=== PATIENT | male | born 1935 | race Caucasian/White ===

== ENCOUNTER 2016-07-14 10:42 | Outpatient (CLI) | END 2016-07-14 10:43 | disposition home or self-care (01) ==

== ENCOUNTER 2016-08-11 11:13 | Outpatient (CLI) | payer MEDICARE, OTHER | END 2016-08-11 11:14 | disposition home or self-care (01) | DX: R94.6 Abnormal results of thyroid function studies (principal); Z79.01 Long term (current) use of anticoagulants; I80.209 Phlebitis and thrombophlebitis of unspecified deep vessels of unspecified lower extremity; I63.9 Cerebral infarction, unspecified ==

== ENCOUNTER 2016-10-07 13:07 | Outpatient (CLI) | payer MEDICARE, OTHER | END 2016-10-07 13:08 | disposition home or self-care (01) | DX: I80.209 Phlebitis and thrombophlebitis of unspecified deep vessels of unspecified lower extremity (principal); Z79.01 Long term (current) use of anticoagulants; I71.2 Thoracic aortic aneurysm, without rupture; I63.9 Cerebral infarction, unspecified ==

== ENCOUNTER 2016-11-09 21:56 | Outpatient (CLI) | payer MEDICARE, OTHER | END 2016-11-09 21:57 | disposition home or self-care (01) | DX: Z79.01 Long term (current) use of anticoagulants (principal); I80.209 Phlebitis and thrombophlebitis of unspecified deep vessels of unspecified lower extremity; I71.2 Thoracic aortic aneurysm, without rupture; I63.9 Cerebral infarction, unspecified; I10 Essential (primary) hypertension; E78.00 Pure hypercholesterolemia, unspecified; M79.1 Myalgia; E11.9 Type 2 diabetes mellitus without complications ==

== ENCOUNTER 2016-12-07 11:03 | Outpatient (CLI) | payer MEDICARE, OTHER | END 2016-12-07 11:04 | disposition home or self-care (01) | LOC: LAB.F 11:03 | PROVIDERS: ATTEND Family Medicine | DX: Z79.01 Long term (current) use of anticoagulants (principal); I63.9 Cerebral infarction, unspecified | CPT/HCPCS: 85610 ==

== ENCOUNTER 2016-12-08 11:08 | Outpatient (CLI) | payer MEDICARE, OTHER | END 2016-12-08 11:09 | disposition home or self-care (01) | LOC: LAB.F 11:08 | PROVIDERS: ATTEND Family Medicine | DX: Z79.01 Long term (current) use of anticoagulants (principal); I63.9 Cerebral infarction, unspecified | CPT/HCPCS: 85610 ==

== ENCOUNTER 2016-12-17 11:31 | Outpatient (CLI) | payer MEDICARE, OTHER | END 2016-12-17 11:32 | disposition home or self-care (01) | LOC: LAB.F 11:31 | PROVIDERS: ATTEND Family Medicine | DX: Z79.01 Long term (current) use of anticoagulants (principal) | CPT/HCPCS: 85610 ==

== ENCOUNTER 2016-12-24 10:40 | Outpatient (CLI) | payer MEDICARE, OTHER | END 2016-12-24 10:41 | disposition home or self-care (01) | LOC: LAB.F 10:40 | PROVIDERS: ATTEND Family Medicine | DX: Z79.01 Long term (current) use of anticoagulants (principal); I63.9 Cerebral infarction, unspecified | CPT/HCPCS: 85610 ==

== ENCOUNTER 2016-12-30 13:05 | Outpatient (CLI) | payer MEDICARE, OTHER | END 2016-12-30 13:06 | disposition home or self-care (01) | LOC: LAB.F 13:05 | PROVIDERS: ATTEND Family Medicine | DX: Z79.01 Long term (current) use of anticoagulants (principal); I63.9 Cerebral infarction, unspecified | CPT/HCPCS: 85610 ==

== ENCOUNTER 2017-02-02 15:16 | Outpatient (CLI) | payer MEDICARE, OTHER | END 2017-02-02 15:17 | LOC: LAB.F 15:16 | PROVIDERS: ATTEND Internal Medicine | DX: Z79.01 Long term (current) use of anticoagulants (principal) | CPT/HCPCS: 85610 ==

== ENCOUNTER 2017-02-22 20:11 | Outpatient (CLI) | payer MEDICARE, OTHER | END 2017-02-22 20:12 | disposition EMS.NT | LOC: EMS 20:11 | PROVIDERS: ATTEND Surgery | DX: H57.8 Other specified disorders of eye and adnexa (principal) ==

== ENCOUNTER 2017-02-28 12:28 | Outpatient (CLI) | payer MEDICARE, OTHER ==
[2017-02-28 19:08] LABS: CALCIUM 9.4 mg/dL (8.5-10.3); CREATININE 1.1 mg/dL (0.6-1.2); POTASSIUM 3.9 mmol/L (3.5-5.0)
[2017-02-28 19:23] LABS: HEMOGLOBIN A1C 0.8 g/dL
== END 2017-02-28 12:29 | disposition home or self-care (01) ==
LOC: LAB.F 12:28
PROVIDERS: ATTEND Internal Medicine
DX: E11.9 Type 2 diabetes mellitus without complications (principal)
CPT/HCPCS: 36415; 80048; 83036; 85610

== ENCOUNTER 2017-03-30 14:12 | Outpatient (CLI) | payer MEDICARE, OTHER | END 2017-03-30 14:13 | disposition home or self-care (01) | LOC: LAB.F 14:12 | PROVIDERS: ATTEND Internal Medicine | DX: Z79.01 Long term (current) use of anticoagulants (principal); E11.9 Type 2 diabetes mellitus without complications ==

== ENCOUNTER → 2017-03-30 | Outpatient (CLI) | payer MEDICARE, OTHER | LOC: LAB.R 08:00 | PROVIDERS: ATTEND Internal Medicine | DX: E11.9 Type 2 diabetes mellitus without complications (principal) | CPT/HCPCS: 82043; 82570 ==

== ENCOUNTER 2017-04-06 14:51 | Outpatient (CLI) | payer MEDICARE, OTHER ==
[2017-04-06 18:01] LABS: BASOPHILS % (AUTO) 0.4 %; EOSINOPHILS # (AUTO) 0.1 10^3/uL (0.0-0.7); EOSINOPHILS % (AUTO) 1.5 %; HCT - HEMATOCRIT 42.1 % (42.0-52.0); HGB - HEMOGLOBIN 14.2 g/dL (14.0-18.0); LYMPHOCYTES # (AUTO) 0.9 10^3/uL (1.5-3.5); LYMPHOCYTES % (AUTO) 12.5 %; MEAN CORPUSCULAR HEMOGLOBIN 30.3 pg (27.0-31.0); MEAN CORPUSCULAR HGB CONC 33.6 g/dL (32.0-36.0); MEAN CORPUSCULAR VOLUME 90.1 fL (80.0-94.0); MONOCYTES # (AUTO) 0.5 10^3/uL (0.0-1.0); MONOCYTES % (AUTO) 7.6 %; NEUTROPHILS # (AUTO) 5.4 10^3/uL (1.5-6.6); NUCLEATED RED BLOOD CELLS AUTO 0.1 /100WBC; RED BLOOD COUNT 4.67 10^6/uL (4.70-6.10); RED CELL DISTRIBUTION WIDTH 13.4 % (12.0-15.0)
[2017-04-06 18:55] LABS: ALBUMIN/GLOBULIN RATIO 1.1 (1.0-2.2); BILIRUBIN,TOTAL 0.9 mg/dL (0.2-1.0); CALCIUM 8.8 mg/dL (8.5-10.3); POTASSIUM 4.6 mmol/L (3.5-5.0); TOTAL PROTEIN 7.5 g/dL (6.7-8.2)
== END 2017-04-06 14:52 | disposition home or self-care (01) ==
LOC: LAB.F 14:51
PROVIDERS: ATTEND Internal Medicine
DX: R53.83 Other fatigue (principal); E11.9 Type 2 diabetes mellitus without complications
CPT/HCPCS: 36415; 80053; 82043; 82570; 85025

== ENCOUNTER 2017-04-07 13:40 | Outpatient (CLI) | payer MEDICARE, OTHER | END 2017-04-07 13:41 | LOC: LAB.R 13:40 | PROVIDERS: ATTEND Internal Medicine | DX: R53.83 Other fatigue (principal); E11.9 Type 2 diabetes mellitus without complications | CPT/HCPCS: 82043; 82570 ==

== ENCOUNTER 2017-05-04 13:11 | Outpatient (CLI) | payer MEDICARE, OTHER | END 2017-05-04 13:12 | disposition home or self-care (01) | LOC: LAB.F 13:11 | PROVIDERS: ATTEND Internal Medicine | DX: Z79.01 Long term (current) use of anticoagulants (principal) | CPT/HCPCS: 85610 ==

== ENCOUNTER 2017-05-05 13:04 | Outpatient (CLI) | payer MEDICARE, OTHER | END 2017-05-05 13:05 | disposition home or self-care (01) | LOC: LAB.F 13:04 | PROVIDERS: ATTEND Internal Medicine | DX: Z79.01 Long term (current) use of anticoagulants (principal) | CPT/HCPCS: 85610 ==

== ENCOUNTER 2017-05-11 14:10 | Outpatient (CLI) | payer MEDICARE, OTHER | END 2017-05-11 14:11 | disposition home or self-care (01) | LOC: LAB.F 14:10 | PROVIDERS: ATTEND Family Medicine | DX: Z79.01 Long term (current) use of anticoagulants (principal) | CPT/HCPCS: 85610 ==

== ENCOUNTER 2017-05-25 12:35 | Outpatient (CLI) | payer MEDICARE, OTHER | END 2017-05-25 12:36 | disposition home or self-care (01) | LOC: LAB.F 12:35 | PROVIDERS: ATTEND Physician Assistant Medical | DX: Z79.01 Long term (current) use of anticoagulants (principal); I48.0 Paroxysmal atrial fibrillation | CPT/HCPCS: 85610 ==

== ENCOUNTER 2017-05-30 15:03 | Outpatient (CLI) | payer MEDICARE, OTHER ==
[2017-05-30 18:44] LABS: ALBUMIN/GLOBULIN RATIO 1.2 (1.0-2.2); BILIRUBIN,TOTAL 0.7 mg/dL (0.2-1.0); CALCIUM 9.2 mg/dL (8.5-10.3); CREATININE 1.1 mg/dL (0.6-1.2); POTASSIUM 3.9 mmol/L (3.5-5.0); TOTAL PROTEIN 7.6 g/dL (6.7-8.2)
[2017-05-30 20:24] LABS: HEMOGLOBIN A1C 0.78 g/dL
== END 2017-05-30 15:04 | disposition home or self-care (01) ==
LOC: LAB.F 15:03
PROVIDERS: ATTEND Physician Assistant Medical
DX: E11.40 Type 2 diabetes mellitus with diabetic neuropathy, unspecified (principal)
CPT/HCPCS: 36415; 80053; 83036

== ENCOUNTER 2017-06-08 11:10 | Outpatient (CLI) | payer MEDICARE, OTHER | END 2017-06-08 11:11 | disposition home or self-care (01) | LOC: LAB.F 11:10 | PROVIDERS: ATTEND Physician Assistant Medical | DX: Z79.01 Long term (current) use of anticoagulants (principal); I48.0 Paroxysmal atrial fibrillation | CPT/HCPCS: 85610 ==

== ENCOUNTER 2017-07-06 14:02 | Outpatient (CLI) | payer MEDICARE, OTHER | END 2017-07-06 14:03 | disposition home or self-care (01) | LOC: LAB.F 14:02 | PROVIDERS: ATTEND Physician Assistant Medical | DX: Z79.01 Long term (current) use of anticoagulants (principal); I48.0 Paroxysmal atrial fibrillation | CPT/HCPCS: 85610 ==

== ENCOUNTER 2017-07-19 13:14 | Outpatient (CLI) | payer MEDICARE, OTHER | END 2017-07-19 13:15 | disposition home or self-care (01) | LOC: LAB.F 13:14 | PROVIDERS: ATTEND Physician Assistant Medical | DX: Z53.9 Procedure and treatment not carried out, unspecified reason (principal) ==

== ENCOUNTER 2017-07-19 13:17 | Outpatient (CLI) | payer MEDICARE, OTHER | END 2017-07-19 13:18 | disposition home or self-care (01) | LOC: LAB.F 13:17 | PROVIDERS: ATTEND Physician Assistant Medical | DX: Z53.9 Procedure and treatment not carried out, unspecified reason (principal) ==

== ENCOUNTER 2017-07-19 13:18 | Outpatient (CLI) | payer MEDICARE, OTHER | END 2017-07-19 13:19 | disposition home or self-care (01) | LOC: LAB.F 13:18 | PROVIDERS: ATTEND Physician Assistant Medical | DX: Z79.01 Long term (current) use of anticoagulants (principal); I48.0 Paroxysmal atrial fibrillation | CPT/HCPCS: 85610 ==

== ENCOUNTER 2017-08-19 11:43 | Emergency (ER) | payer MEDICARE, OTHER ==
[2017-08-19 12:41] LABS: BASOPHILS # (AUTO) 0.1 10^3/uL (0.0-0.1); BASOPHILS % (AUTO) 3.1 %; EOSINOPHILS # (AUTO) 0.2 10^3/uL (0.0-0.7); EOSINOPHILS % (AUTO) 3.7 %; HGB - HEMOGLOBIN 13.2 g/dL (14.0-18.0); LYMPHOCYTES # (AUTO) 0.7 10^3/uL (1.5-3.5); LYMPHOCYTES % (AUTO) 13.7 %; MEAN CORPUSCULAR HEMOGLOBIN 29.9 pg (27.0-31.0); MEAN CORPUSCULAR HGB CONC 34.2 g/dL (32.0-36.0); MEAN CORPUSCULAR VOLUME 87.6 fL (80.0-94.0); MEAN PLATELET VOLUME 7.8 fL (7.4-11.4); MONOCYTES # (AUTO) 0.4 10^3/uL (0.0-1.0); MONOCYTES % (AUTO) 8.8 %; NEUTROPHILS # (AUTO) 3.4 10^3/uL (1.5-6.6); NEUTROPHILS % (AUTO) 70.7 %; PLT - PLATELET COUNT 319 10^3/uL (130-450); RED BLOOD COUNT 4.42 10^6/uL (4.70-6.10); WHITE BLOOD COUNT 4.8 x10^3/uL (4.8-10.8)
[2017-08-19 12:44] LABS: INR 4.3 (0.8-1.2); PT - PROTHROMBIN TIME 46.2 secs (9.9-12.6)
[2017-08-19 12:55] LABS: ALBUMIN 3.7 g/dL (3.2-5.5); ALBUMIN/GLOBULIN RATIO 0.9 (1.0-2.2); BILIRUBIN,TOTAL 0.9 mg/dL (0.2-1.0); MAGNESIUM 1.7 mg/dL (1.7-2.8); TOTAL PROTEIN 7.8 g/dL (6.7-8.2)
--- NOTE | 2017-08-19 13:25 | ED Physician Documentation ---
PD HPI NVD - Stated complaint Stated Complaint: MALE - Chief complaint Chief Complaint: Abd Pain - History obtained from History obtained from: Patient, Family (spouse) - History of Present Illness Timing - onset: Last night Timing - details: Now resolved (Last episode was about 2 AM.) Associated symptoms: No: Fever, Abdominal pain - Additonal information Additional information: The patient is an 81-year-old male with a history of diabetes, atrial fibrillation, and CVA with right neurologic deficits, who presents with watery diarrhea that started yesterday and continued through the night until 2 AM this morning. He denies any recurrent episodes since 2 AM. He denies abdominal pain , nausea or vomiting, fever, or dysuria. He has a history of chronic diarrhea on a daily basis, but never this watery or profuse. He has a history of rectal cancer for which he is status post surgical resection years ago. Review of Systems Constitutional: denies: Fever Nose: denies: Congestion Throat: denies: Sore throat Cardiac: denies: Chest pain / pressure Respiratory: denies: Dyspnea, Cough GI: reports: Diarrhea. denies: Abdominal Pain, Nausea, Vomiting : denies: Dysuria Skin: denies: Rash Musculoskeletal: denies: Back pain, Extremity swelling Neurologic: denies: Altered mental status, Headache PD PAST MEDICAL HISTORY - Past Medical History Cardiovascular: Hypertension, High cholesterol, Atrial fibrillation Respiratory: None Neuro: CVA Endocrine/Autoimmune: Type 2 diabetes GI: Chronic diarrhea, Other (Rectal cancer) : None HEENT: None Psych: None Musculoskeletal: Other Derm: Other - Past Surgical History Past Surgical History: Yes General: Colonoscopy, EGD, Other (Colorectal surgery for cancer years ago.) HEENT: Cataracts - Present Medications Home Medications: Ambulatory Orders Medication Instructions Recorded Confirmed Gabapentin [Neurontin] 100 mg PO DAILY 02/05/13 07/20/17 Levothyroxine [Synthroid] 75 mcg PO QDAC 02/05/13 07/20/17 Lisinopril 2.5 mg PO DAILY 02/05/13 07/20/17 Simvastatin [Zocor] 10 mg PO DAILY 02/05/13 07/20/17 Warfarin Sodium [Coumadin] 2.5 mg PO DAILY 02/05/13 07/20/17 Glipizide [Glipizide ER] 5 mg PO DAILY 05/09/13 07/20/17 Multivitamin [Gummi Bear 2 each PO DAILY 05/09/13 07/20/17 Multivitamin] Vitamin B Complex [B Complex] 1 each PO BID 05/09/13 07/20/17 Gabapentin [Neurontin] 200 mg PO HS 06/07/13 07/20/17 Cholecalciferol (Vitamin D3) 2,000 unit PO DAILY 06/19/14 07/20/17 [Vitamin D-3] Metoprolol Succinate 25 mg PO DAILY 06/19/14 07/20/17 Vit C/E/Zn/Coppr/Lutein/Zeaxan 1 each PO DAILY 06/19/14 07/20/17 [Ocuvite Lutein & Zeaxanthin Cp] Tamsulosin [Flomax] 0.4 mg ORAL DAILY 08/19/17 - Allergies Allergies/Adverse Reactions: Allergies Allergy/AdvReac Type Severity Reaction Status Date / Time No Known Drug Allergies Allergy Verified 08/19/17 12:23 - Living Situation Living Situation: reports: With spouse/s.o. Living Arrangement: reports: At home - Social History Does the pt smoke?: No Smoking Status: Never smoker Does the pt drink ETOH?: No Does the pt have substance abuse?: No - Immunizations Immunizations are current?: No Immunizations: TDAP >10years/unknown - POLST Patient has POLST: No PD ED PE NORMAL - Vitals Vital signs reviewed: Yes (Initially tachycardic.) - General General: Alert and oriented X 3, Well developed/nourished - HEENT HEENT: Atraumatic, Moist mucous membranes, Pharynx benign - Neck Neck: No adenopathy, No JVD - Cardiac Cardiac: No murmur, Other (Rapid rate, irregularly irregular rhythm.) - Respiratory Respiratory: No respiratory distress, Clear bilaterally - Abdomen Abdomen: Soft, Non tender - Rectal Rectal: Other (Trace heme positive stool.) - Back Back: No CVA TTP - Derm Derm: No rash - Extremities Extremities: No edema, No calf tenderness / cord - Neuro Neuro: Alert and oriented X 3, Normal speech, Other (No acute motor or sensory deficit.) PD ED PE EXPANDED - Rectal Rectal: Heme Occult Pos - QC + (trace) Results - Vitals Vitals: Oxygen O2 Source Room air - EKG (time done) 12:08 Rate: Rate (enter#) (105) Rhythm: Atrial fibrillation [place]: RAD (borderline) QRS: Normal Ischemia: T wave inversion (in lead III.) Compare to prior EKG: Unchanged from prior EKG Computer interpretation: Agree with computer - Labs Labs: Laboratory Tests 08/19/17 08/19/17 08/19/17 12:22 12:22 12:22 WBC 4.8 RBC 4.42 L Hgb 13.2 L Hct 38.7 L MCV 87.6 MCH 29.9 MCHC 34.2 RDW 13.0 Plt Count 319 MPV 7.8 Neut # 3.4 Lymph # 0.7 L Leslie # 0.4 Eos # 0.2 Baso # 0.1 Absolute Nucleated RBC 0.01 Nucleated RBC % 0.1 PT 46.2 H INR 4.3 H Sodium 136 Potassium 3.7 Chloride 106 Carbon Dioxide 20 L Anion Gap 10.0 BUN 26 H Creatinine 1.0 Estimated GFR (MDRD) 72 L Glucose 165 H Calcium 9.0 Magnesium 1.7 Total Bilirubin 0.9 AST 27 ALT 29 Alkaline Phosphatase 71 Total Protein 7.8 Albumin 3.7 Globulin 4.1 Albumin/Globulin Ratio 0.9 L Lipase 19 L Urine Color Urine Clarity Urine pH Ur Specific [place] Urine Protein Urine Glucose (UA) Urine Ketones Urine Occult Blood Urine Nitrite Urine Bilirubin Urine Urobilinogen Ur Leukocyte Esterase Ur Microscopic Review Urine Culture Comments 08/19/17 14:35 WBC RBC Hgb Hct MCV MCH MCHC RDW Plt Count MPV Neut # Lymph # Leslie # Eos # Baso # Absolute Nucleated RBC Nucleated RBC % PT INR Sodium Potassium Chloride Carbon Dioxide Anion Gap BUN Creatinine Estimated GFR (MDRD) Glucose Calcium Magnesium Total Bilirubin AST ALT Alkaline Phosphatase Total Protein Albumin Globulin Albumin/Globulin Ratio Lipase Urine Color YELLOW Urine Clarity CLEAR Urine pH 6.0 Ur Specific [place] >=1.030 H Urine Protein NEGATIVE Urine Glucose (UA) NEGATIVE Urine Ketones NEGATIVE Urine Occult Blood NEGATIVE Urine Nitrite NEGATIVE Urine Bilirubin NEGATIVE Urine Urobilinogen 0.2 (NORMAL) Ur Leukocyte Esterase NEGATIVE Ur Microscopic Review NOT INDICATED Urine Culture Comments NOT INDICATED PD MEDICAL DECISION MAKING - ED course Complexity details: reviewed old records, reviewed results, re-evaluated patient , considered differential, d/w patient, d/w family ED course: The patient's presentation is significant for watery diarrhea, which has resolved. His exam in the emergency department is totally benign except for trace heme positive stool. Laboratory evaluation reveals normal CBC and unremarkable chemistry panel, except for mildly elevated BUN of 26. His pro- time is supratherapeutic with an INR of 4.3. While in the emergency department the patient demonstrated ability to drink fluids without any recurrent episodes of diarrhea. With the ability to ingest adequate oral fluids, I do not think IV fluid administration is clinically necessary. I discussed with the patient and his the supratherapeutic INR, and advised holding his warfarin dose for today and tomorrow, and then resuming at his normal dose, and having his INR rechecked on Tuesday. I discussed with them potentially worrisome signs or symptoms that should prompt reevaluation in the emergency department. Departure - Departure Disposition: 01 Home, Self Care Clinical Impression: Elevated INR, Chronic a-fib Diarrhea Qualifiers: Diarrhea type: unspecified type Qualified Code(s): R19.7 - Diarrhea, unspecified Condition: Stable Instructions: ED Diet Vomiting Diarrhea Follow-Up: Edel Reyes PA-C [Primary Care Provider] - Comments: Drink plenty of fluids. Do not take warfarin tonight or tomorrow, then resume your normal Tuesday. Have your INR rechecked on Tuesday, and follow up with your primary physician for further instructions. Return to the emergency department if you develop increasing diarrhea, abdominal pain, dehydration, or otherwise worsening symptoms. Discharge Date/Time: 08/19/17 15:21
[2017-08-19 14:42] VITALS: BP 159/93
[2017-08-19 14:54] LABS: BILIRUBIN,URINE NEGATIVE (NEGATIVE); GLUCOSE, URINE (UA) NEGATIVE (NEGATIVE); KETONES,URINE (UA) NEGATIVE (NEGATIVE); LEUKOCYTE ESTERASE, URINE NEGATIVE (NEGATIVE); NITRITE,URINE NEGATIVE (NEGATIVE); OCCULT BLOOD,URINE NEGATIVE (NEGATIVE); PROTEIN,URINE NEGATIVE (NEGATIVE); UROBILINOGEN,URINE 0.2 (NORMAL) E.U./dL (NORMAL)
[2017-08-19 14:58] LABS: CLARITY,URINE CLEAR (CLEAR)
== END 2017-08-19 15:21 | disposition home or self-care (01) ==
LOC: ED 11:43
DX: I48.2 Chronic atrial fibrillation (principal); Z79.01 Long term (current) use of anticoagulants; R19.7 Diarrhea, unspecified; D68.9 Coagulation defect, unspecified; E11.9 Type 2 diabetes mellitus without complications; I10 Essential (primary) hypertension; E78.00 Pure hypercholesterolemia, unspecified; Z86.73 Personal history of transient ischemic attack (TIA), and cerebral infarction without residual deficits; Z85.048 Personal history of other malignant neoplasm of rectum, rectosigmoid junction, and anus
CPT/HCPCS: 36415; 80053; 81001; 81003; 83690; 83735; 85025; 85610; 87086; 93005; 99283; 99284

== ENCOUNTER 2017-08-26 11:11 | Outpatient (CLI) | payer MEDICARE, OTHER ==
[2017-08-26 18:40] LABS: CALCIUM 9.1 mg/dL (8.5-10.3); CREATININE 1.2 mg/dL (0.6-1.2)
[2017-08-26 19:57] LABS: HB2 TOTAL 14.4 g/dL; HEMOGLOBIN A1C 0.77 g/dL
== END 2017-08-26 11:12 | disposition home or self-care (01) ==
LOC: LAB.F 11:11
PROVIDERS: ATTEND Physician Assistant Medical
DX: I48.0 Paroxysmal atrial fibrillation (principal); I50.9 Heart failure, unspecified; E11.9 Type 2 diabetes mellitus without complications; Z79.01 Long term (current) use of anticoagulants
CPT/HCPCS: 36415; 80048; 83036; 85610

== ENCOUNTER 2017-09-02 12:42 | Outpatient (CLI) | payer MEDICARE, OTHER | END 2017-09-02 12:43 | disposition home or self-care (01) | LOC: LAB.F 12:42 | PROVIDERS: ATTEND Physician Assistant Medical | DX: I48.0 Paroxysmal atrial fibrillation (principal); Z79.01 Long term (current) use of anticoagulants | CPT/HCPCS: 85610 ==

== ENCOUNTER 2017-09-06 08:00 | Outpatient (CLI) | payer MEDICARE, OTHER | END 2017-09-06 08:01 | disposition home or self-care (01) | LOC: LAB.F 08:00 | PROVIDERS: ATTEND Physician Assistant Medical | DX: Z79.01 Long term (current) use of anticoagulants (principal); I48.0 Paroxysmal atrial fibrillation | CPT/HCPCS: 85610 ==

== ENCOUNTER 2017-09-12 13:42 | Outpatient (CLI) | payer MEDICARE, OTHER | END 2017-09-12 13:43 | disposition home or self-care (01) | LOC: LAB.F 13:42 | PROVIDERS: ATTEND Physician Assistant Medical | DX: Z79.01 Long term (current) use of anticoagulants (principal); I48.0 Paroxysmal atrial fibrillation | CPT/HCPCS: 85610 ==

== ENCOUNTER 2017-09-16 11:58 | Outpatient (CLI) | payer MEDICARE, OTHER | END 2017-09-16 11:59 | disposition home or self-care (01) | LOC: LAB.F 11:58 | PROVIDERS: ATTEND Physician Assistant Medical | DX: I48.0 Paroxysmal atrial fibrillation (principal); Z79.01 Long term (current) use of anticoagulants | CPT/HCPCS: 85610 ==

== ENCOUNTER 2017-09-23 05:59 | Day surgery (SDC) | payer MEDICARE, OTHER ==
[2017-09-23] MEDS ORDERED: LACTATED RINGERS 1,000 ML IV ONE (06:52)
[2017-09-23] MEDS ORDERED: PROPOFOL 200 MG/20 ML VIAL IVP ONE (07:52)
[2017-09-23] MEDS ORDERED: LIDOCAINE-MPF 2% 5 ML VIAL IM ONE (07:52)
[2017-09-23 08:56] VITALS: BP 120/54
== END 2017-09-23 06:00 | disposition home or self-care (01) ==
LOC: SDS 05:59
PROVIDERS: ATTEND Surgery
PROC: 0DBL8ZX Excision of Transverse Colon, Via Natural or Artificial Opening Endoscopic, Diagnostic (ICD-10-PCS; 2017-09-23)
PROC: 0DBN8ZX Excision of Sigmoid Colon, Via Natural or Artificial Opening Endoscopic, Diagnostic (ICD-10-PCS; 2017-09-23)
PROC: 0W3P8ZZ Control Bleeding in Gastrointestinal Tract, Via Natural or Artificial Opening Endoscopic (ICD-10-PCS; 2017-09-23)
PROC: 0DBP8ZX Excision of Rectum, Via Natural or Artificial Opening Endoscopic, Diagnostic (ICD-10-PCS; principal; 2017-09-23 07:30)
DX: D12.3 Benign neoplasm of transverse colon (principal); D12.5 Benign neoplasm of sigmoid colon; K57.30 Diverticulosis of large intestine without perforation or abscess without bleeding; I48.91 Unspecified atrial fibrillation; Z79.01 Long term (current) use of anticoagulants; Z85.048 Personal history of other malignant neoplasm of rectum, rectosigmoid junction, and anus; Z86.718 Personal history of other venous thrombosis and embolism; I10 Essential (primary) hypertension; E11.40 Type 2 diabetes mellitus with diabetic neuropathy, unspecified; E11.51 Type 2 diabetes mellitus with diabetic peripheral angiopathy without gangrene; E78.00 Pure hypercholesterolemia, unspecified
CPT/HCPCS: 45384; J7120

== ENCOUNTER 2017-09-25 10:55 | Emergency (ER) | payer MEDICARE, OTHER ==
--- NOTE | 2017-09-25 14:02 | Ultrasound Preliminary Report ---
Exam: US DUPLEX LWR EXT ARTERIAL RT IMPRESSION: 1. Scattered foci of plaque seen throughout the right lower extremity arteries. 2. Arterial velocities and spectral waveforms show no evidence for hemodynamically significant stenos es. [facility] SITE ID: [id number]
--- NOTE | 2017-09-25 14:04 | Ultrasound Report ---
EXAM: RIGHT LOWER EXTREMITY VENOUS ULTRASOUND EXAM DATE: 09/25/2017 12:27 PM. CLINICAL HISTORY: L pain hx DVT off coumadin 2/2 surgery. COMPARISON: None. TECHNIQUE: Real-time sonographic vascular imaging was performed by the associate consulting engineer through the lower extremity utilizing both color-flow and Doppler spectral analysis. Multiple fraud representative static cruz ges were saved for review. FINDINGS: Common Femoral Vein (CFV): Normal. CFV-GSV Junction: Normal. Profunda Femoral Vein (PFV): Normal. Femoral Vein (FV) Prox: Normal. Femoral Vein (FV) Mid: Normal. Femoral Vein (FV) Dist: Normal. Popliteal Vein: Normal. Posterior Tibial Veins: Normal. Peroneal Veins: Normal. Contralateral Side CFV: Normal. Other: None. IMPRESSION: No evidence for deep venous thrombosis. [facility] Referring Provider Line: [phone] SITE ID: [id number]
--- NOTE | 2017-09-25 14:42 | ED Physician Documentation ---
History of Present Illness - Stated complaint Stated Complaint: RT FOOT NUMBNESS - Chief complaint Chief Complaint: Ext Problem - Additonal information Additional information: hx from pt and hx DVT in 2000 has been on coumadin since then help coumadin for a colonoscopy, had biopsies so is not to restart for several more days this AM he had severe R ankle pain and swelling and per his the foot was pale getting better now no CP or SOA Review of Systems Constitutional: denies: Fever Cardiac: denies: Chest pain / pressure Respiratory: denies: Dyspnea Musculoskeletal: reports: Extremity pain Endocrine: denies: Easy bruising / bleeding Immunocompromised: denies: Immunocompromised PD PAST MEDICAL HISTORY - Past Medical History Cardiovascular: Hypertension, High cholesterol, Atrial fibrillation Respiratory: None Neuro: CVA Endocrine/Autoimmune: Type 2 diabetes GI: Chronic diarrhea, Other : None HEENT: None Psych: None Musculoskeletal: Other Derm: Other - Past Surgical History Past Surgical History: Yes General: Colonoscopy, EGD, Other HEENT: Cataracts - Present Medications Home Medications: Ambulatory Orders Medication Instructions Recorded Confirmed Gabapentin [Neurontin] 100 mg PO QDBREAKFAST 02/05/13 09/25/17 Levothyroxine [Synthroid] 112 mcg PO QDBREAKFAST 02/05/13 09/25/17 Lisinopril 2.5 mg PO DAILY 02/05/13 09/25/17 Simvastatin [Zocor] 10 mg PO DAILY 02/05/13 09/25/17 Warfarin Sodium [Coumadin] 2 mg PO ONCE 02/05/13 09/25/17 Glipizide [Glipizide ER] 5 mg PO DAILY 05/09/13 09/25/17 Multivitamin [Gummi Bear 1 each PO DAILY 05/09/13 09/25/17 Multivitamin] Vitamin B Complex [B Complex] 1 each PO DAILY 05/09/13 09/25/17 Cholecalciferol (Vitamin D3) 2,000 unit PO DAILY 06/19/14 09/25/17 [Vitamin D-3] Metoprolol Succinate 12.5 mg PO QDBREAKFAST 06/19/14 09/25/17 Tamsulosin [Flomax] 0.4 mg ORAL DAILY 08/19/17 09/25/17 Diltiazem HCl [Cardizem] 120 mg PO QDDINNER 09/12/17 09/25/17 Gabapentin 200 mg PO QDDINNER 09/12/17 09/25/17 Psyllium [Metamucil] 1 each PO DAILY 09/12/17 09/25/17 Warfarin Sodium [Coumadin] 1 mg PO ONCE 09/12/17 09/25/17 - Allergies Allergies/Adverse Reactions: Allergies Allergy/AdvReac Type Severity Reaction Status Date / Time No Known Drug Allergies Allergy Verified 09/25/17 11:06 - Social History Does the pt smoke?: No Smoking Status: Never smoker Does the pt drink ETOH?: No Does the pt have substance abuse?: No - Immunizations Immunizations are current?: No Immunizations: TDAP >10years/unknown - POLST Patient has POLST: No PD ED PE NORMAL - Vitals Vital signs reviewed: Yes - Cardiac Cardiac: RRR - Respiratory Respiratory: No respiratory distress, Clear bilaterally - Abdomen Abdomen: Soft, Non tender - Derm Derm: Normal color (not pale or discolored or cool, brisk cap refill, strong pedal pulse) - Extremities Extremities: Other (mild ankle edema not red warm or swollen, able to range s pain) - Neuro Neuro: Alert and oriented X 3, No motor deficit, No sensory deficit Results - Vitals Vitals: Vital Signs - 24 hr 09/25/17 11:01 Temperature 35.7 C L Heart Rate 90 Respiratory 16 Rate Blood Pressure 117/62 O2 Saturation 97 Oxygen O2 Source Room air - Rads (name of study) RLE doppler Radiology: See rad report (no DVT) RLE arterial doppler Radiology: See rad report (no hemodynamically significant stenosis) Departure - Departure Disposition: 01 Home, Self Care Clinical Impression: Ankle pain, right Qualifiers: Chronicity: acute Qualified Code(s): M25.571 - Pain in right ankle and joints of right foot Condition: Good Follow-Up: Edel Reyes PA-C [Primary Care Provider] - Comments: Your exam does not suggest an ankle injury or infection The ultrasounds showed no blood clots and normal arterial flow to your leg And you are feeling better and the foot is no longer pale So I think it is OK for you to go home. May take tylenol as needed and use an CESAR wrap for any swelling Please follow up with your PMD as needed
[2017-09-25 14:46] VITALS: BP 112/75
--- NOTE | 2017-09-25 14:46 | Ultrasound Report ---
EXAM: RIGHT LOWER EXTREMITY ARTERIAL DOPPLER ULTRASOUND EXAM DATE: 09/25/2017 12:41 PM. CLINICAL HISTORY: Pain and pallor. COMPARISON: None. TECHNIQUE: Real-time sonographic vascular imaging was performed by the medical cost consultant, utilizing color-f low, Doppler flow, and spectral analysis. Multiple client representative static images were saved for review . FINDINGS: Right Lower Extremity: FINANCIAL SERVICES SALES REPRESENTATIVE: PSV 80 cm/sec, triphasic. PSFA: PSV 62 cm/sec, triphasic. MSFA: PSV 60 cm/sec, triphasic. DSFA: PSV 56 cm/sec, triphasic. PFA: PSV 67 cm/sec, biphasic. POP: PSV 46 cm/sec, triphasic CAMILA: PSV 57 cm/sec, triphasic DRIER BELT CONVEYOR: PSV 57 cm/sec, triphasic. RAMBO: PSV 33 cm/sec, biphasic. DPA: PSV 66 cm/sec, triphasic. IMPRESSION: 1. Scattered foci of plaque seen throughout the right lower extremity arteries. 2. Arterial velocities and spectral waveforms show no evidence for hemodynamically significant stenos es. [facility] Referring Provider Line: [phone] SITE ID: [id number]
== END 2017-09-25 15:44 | disposition home or self-care (01) ==
LOC: ED 10:55
DX: M25.571 Pain in right ankle and joints of right foot (principal); Z86.718 Personal history of other venous thrombosis and embolism; Z79.01 Long term (current) use of anticoagulants; I10 Essential (primary) hypertension; E11.9 Type 2 diabetes mellitus without complications; Z79.84 Long term (current) use of oral hypoglycemic drugs
CPT/HCPCS: 99283

== ENCOUNTER 2017-10-07 12:51 | Outpatient (CLI) | payer MEDICARE, OTHER | END 2017-10-07 12:52 | disposition home or self-care (01) | LOC: LAB.F 12:51 | PROVIDERS: ATTEND Physician Assistant Medical | DX: Z79.01 Long term (current) use of anticoagulants (principal); I48.0 Paroxysmal atrial fibrillation | CPT/HCPCS: 85610 ==

== ENCOUNTER 2017-10-10 08:00 | Outpatient (CLI) | payer MEDICARE, OTHER | END 2017-10-10 23:59 | disposition home or self-care (01) | LOC: LAB.R 08:00 | PROVIDERS: ATTEND Surgery | DX: R19.4 Change in bowel habit (principal) | CPT/HCPCS: 87045; 87046; 87177; 87209 ==

== ENCOUNTER 2017-10-13 08:00 | Outpatient (CLI) | payer MEDICARE, OTHER | END 2017-10-13 08:01 | disposition home or self-care (01) | LOC: LAB.R 08:00 | PROVIDERS: ATTEND Surgery | DX: R19.4 Change in bowel habit (principal) | CPT/HCPCS: 83630; 87493 ==

== ENCOUNTER 2017-11-07 13:07 | Outpatient (CLI) | payer MEDICARE, OTHER | END 2017-11-07 13:08 | disposition home or self-care (01) | LOC: LAB.F 13:07 | PROVIDERS: ATTEND Physician Assistant Medical | DX: Z79.01 Long term (current) use of anticoagulants (principal); I48.0 Paroxysmal atrial fibrillation | CPT/HCPCS: 85610 ==

== ENCOUNTER 2017-11-21 14:05 | Outpatient (CLI) | payer MEDICARE, OTHER | END 2017-11-21 14:06 | disposition home or self-care (01) | LOC: LAB.F 14:05 | PROVIDERS: ATTEND Physician Assistant Medical | DX: Z79.01 Long term (current) use of anticoagulants (principal); I48.0 Paroxysmal atrial fibrillation | CPT/HCPCS: 85610 ==

== ENCOUNTER 2017-12-16 11:29 | Outpatient (CLI) | payer MEDICARE, OTHER | END 2017-12-16 11:30 | disposition home or self-care (01) | LOC: LAB.F 11:29 | PROVIDERS: ATTEND Internal Medicine | DX: I48.0 Paroxysmal atrial fibrillation (principal); Z79.01 Long term (current) use of anticoagulants | CPT/HCPCS: 85610 ==

== ENCOUNTER 2018-01-02 10:42 | Outpatient (CLI) | payer MEDICARE, OTHER | END 2018-01-02 10:43 | disposition home or self-care (01) | LOC: LAB.F 10:42 | PROVIDERS: ATTEND Internal Medicine | DX: Z79.01 Long term (current) use of anticoagulants (principal) ==

== ENCOUNTER 2018-01-13 08:00 | Outpatient (CLI) | payer MEDICARE, OTHER | END 2018-01-13 08:01 | LOC: LAB.F 08:00 | PROVIDERS: ATTEND Internal Medicine | DX: Z79.01 Long term (current) use of anticoagulants (principal); I48.0 Paroxysmal atrial fibrillation | CPT/HCPCS: 85610 ==

== ENCOUNTER 2018-01-19 09:38 | Outpatient (CLI) | payer MEDICARE, OTHER ==
[2018-01-19 17:39] LABS: BASOPHILS # (AUTO) 0.1 10^3/uL (0.0-0.1); BASOPHILS % (AUTO) 1.4 %; EOSINOPHILS # (AUTO) 0.2 10^3/uL (0.0-0.7); EOSINOPHILS % (AUTO) 4.4 %; HGB - HEMOGLOBIN 13.8 g/dL (14.0-18.0); LYMPHOCYTES % (AUTO) 22.9 %; MEAN CORPUSCULAR HGB CONC 32.7 g/dL (32.0-36.0); MEAN CORPUSCULAR VOLUME 91.8 fL (80.0-94.0); MEAN PLATELET VOLUME 9.1 fL (7.4-11.4); MONOCYTES # (AUTO) 0.5 10^3/uL (0.0-1.0); MONOCYTES % (AUTO) 11.5 %; NEUTROPHILS # (AUTO) 2.7 10^3/uL (1.5-6.6); NEUTROPHILS % (AUTO) 59.8 %; PLT - PLATELET COUNT 242 10^3/uL (130-450); RED BLOOD COUNT 4.59 10^6/uL (4.70-6.10); RED CELL DISTRIBUTION WIDTH 14.1 % (12.0-15.0); WHITE BLOOD COUNT 4.5 x10^3/uL (4.8-10.8)
[2018-01-19 18:00] LABS: HB2 TOTAL 15.1 g/dL; HEMOGLOBIN A1C 0.83 g/dL; HEMOGLOBIN A1C % 7.2 % (4.6-6.2)
[2018-01-19 18:08] LABS: ALBUMIN 3.5 g/dL (3.2-5.5); ALBUMIN/GLOBULIN RATIO 0.9 (1.0-2.2); ALKALINE PHOSPHATASE 65 IU/L (42-121); ALT ALANINE AMINOTRANSFERASE 26 IU/L (10-60); AST ASPARTATE AMINOTRANSFERASE 30 IU/L (10-42); BILIRUBIN,TOTAL 1.2 mg/dL (0.2-1.0); BUN - BLOOD UREA NITROGEN 22 mg/dL (6-20); CALCIUM 8.8 mg/dL (8.5-10.3); CARBON DIOXIDE - CO2 21 mmol/L (21-32); CHLORIDE 102 mmol/L (101-111); CHOL/HDL RATIO 2.3 (<5.0); CHOLESTEROL 96 mg/dL; GFR - MDRD 72 (>89); GLUCOSE 134 mg/dL (70-100); HDL CHOLESTEROL 42 mg/dL; LDL CHOLESTEROL,CALCULATED 29 mg/dL; LDL/HDL RATIO 0.7 (<3.6); SODIUM 135 mmol/L (135-145); TOTAL PROTEIN 7.5 g/dL (6.7-8.2); VLDL CHOLESTEROL 25 mg/dL
== END 2018-01-19 09:39 | disposition home or self-care (01) ==
LOC: LAB.F 09:38
PROVIDERS: ATTEND Internal Medicine
DX: Z79.01 Long term (current) use of anticoagulants (principal); I48.0 Paroxysmal atrial fibrillation; R53.83 Other fatigue; E11.9 Type 2 diabetes mellitus without complications; E78.00 Pure hypercholesterolemia, unspecified; R60.0 Localized edema; I10 Essential (primary) hypertension
CPT/HCPCS: 36415; 80053; 80061; 83036; 83721; 84443; 85025; 85610

== ENCOUNTER 2018-02-22 10:42 | Outpatient (CLI) | payer MEDICARE, OTHER | END 2018-02-22 10:43 | disposition home or self-care (01) | LOC: LAB.F 10:42 | PROVIDERS: ATTEND Internal Medicine | DX: Z79.01 Long term (current) use of anticoagulants (principal); I48.0 Paroxysmal atrial fibrillation | CPT/HCPCS: 85610 ==

== ENCOUNTER 2018-03-02 12:58 | Outpatient (CLI) | payer MEDICARE, OTHER | END 2018-03-02 12:59 | disposition home or self-care (01) | LOC: LAB.F 12:58 | PROVIDERS: ATTEND Internal Medicine | DX: Z79.01 Long term (current) use of anticoagulants (principal); I48.0 Paroxysmal atrial fibrillation | CPT/HCPCS: 85610 ==

== ENCOUNTER 2018-03-29 13:08 | Outpatient (CLI) | payer MEDICARE, OTHER | END 2018-03-29 13:09 | disposition home or self-care (01) | LOC: LAB.F 13:08 | PROVIDERS: ATTEND Internal Medicine | DX: Z79.01 Long term (current) use of anticoagulants (principal); I48.0 Paroxysmal atrial fibrillation | CPT/HCPCS: 85610 ==

== ENCOUNTER 2018-04-20 13:33 | Outpatient (CLI) | payer MEDICARE, OTHER | END 2018-04-20 13:34 | disposition home or self-care (01) | LOC: LAB.F 13:33 | PROVIDERS: ATTEND Internal Medicine | DX: Z79.01 Long term (current) use of anticoagulants (principal); I48.0 Paroxysmal atrial fibrillation | CPT/HCPCS: 85610 ==

== ENCOUNTER 2018-05-17 11:46 | Outpatient (CLI) | payer MEDICARE, OTHER | END 2018-05-17 11:47 | disposition home or self-care (01) | LOC: LAB.F 11:46 | PROVIDERS: ATTEND Internal Medicine | DX: Z79.01 Long term (current) use of anticoagulants (principal); I48.0 Paroxysmal atrial fibrillation | CPT/HCPCS: 85610 ==

== ENCOUNTER 2018-06-12 13:42 | Outpatient (CLI) | payer MEDICARE, OTHER | END 2018-06-12 13:43 | disposition home or self-care (01) | LOC: LAB.F 13:42 | PROVIDERS: ATTEND Internal Medicine | DX: Z79.01 Long term (current) use of anticoagulants (principal); I48.0 Paroxysmal atrial fibrillation | CPT/HCPCS: 85610 ==

== ENCOUNTER 2018-06-27 11:05 | Outpatient (CLI) | payer MEDICARE, OTHER | END 2018-06-27 11:06 | disposition home or self-care (01) | LOC: LAB.F 11:05 | PROVIDERS: ATTEND Internal Medicine | DX: Z79.01 Long term (current) use of anticoagulants (principal); I48.0 Paroxysmal atrial fibrillation | CPT/HCPCS: 85610 ==

== ENCOUNTER 2018-08-17 13:46 | Outpatient (CLI) | payer MEDICARE, OTHER | END 2018-08-17 13:47 | disposition home or self-care (01) | LOC: LAB.F 13:46 | PROVIDERS: ATTEND Internal Medicine | DX: I48.0 Paroxysmal atrial fibrillation (principal); Z79.01 Long term (current) use of anticoagulants | CPT/HCPCS: 85610 ==

== ENCOUNTER 2018-09-14 09:48 | Outpatient (CLI) | payer MEDICARE, OTHER | END 2018-09-14 09:49 | disposition home or self-care (01) | LOC: LAB.F 09:48 | PROVIDERS: ATTEND Internal Medicine | DX: I48.0 Paroxysmal atrial fibrillation (principal); Z79.01 Long term (current) use of anticoagulants | CPT/HCPCS: 85610 ==

== ENCOUNTER 2018-10-12 15:51 | Outpatient (CLI) | payer MEDICARE, OTHER | END 2018-10-12 23:59 | disposition home or self-care (01) | LOC: LAB.F 15:51 | PROVIDERS: ATTEND Internal Medicine | DX: Z79.01 Long term (current) use of anticoagulants (principal); I48.0 Paroxysmal atrial fibrillation | CPT/HCPCS: 85610 ==

== ENCOUNTER 2018-11-13 09:36 | Outpatient (CLI) | payer MEDICARE, OTHER | END 2018-11-13 09:37 | disposition home or self-care (01) | LOC: LAB.F 09:36 | PROVIDERS: ATTEND Internal Medicine | DX: I48.0 Paroxysmal atrial fibrillation (principal); Z79.01 Long term (current) use of anticoagulants | CPT/HCPCS: 85610 ==

== ENCOUNTER 2018-12-11 09:30 | Emergency (ER) | payer MEDICARE, OTHER ==
[2018-12-11 10:02] LABS: BILIRUBIN,URINE NEGATIVE (NEGATIVE); GLUCOSE, URINE (UA) 500 mg/dL (NEGATIVE); KETONES,URINE (UA) NEGATIVE (NEGATIVE); LEUKOCYTE ESTERASE, URINE SMALL (NEGATIVE); NITRITE,URINE POSITIVE (NEGATIVE); OCCULT BLOOD,URINE LARGE (NEGATIVE); PROTEIN,URINE TRACE mg/dL (NEGATIVE); UROBILINOGEN,URINE 0.2 (NORMAL) E.U./dL (NORMAL)
[2018-12-11 10:03] LABS: CLARITY,URINE HAZY (CLEAR)
[2018-12-11 10:08] LABS: BACTERIA,URINE Moderate /HPF (None Seen); SQUAMOUS EPITHELIAL CELL,UR NONE SEEN (<= Few)
[2018-12-11] MEDS ORDERED: cefTRIAXone 1 GM in SODIUM CHLORIDE 0.9% MINIBAG 100 ML IV STA (10:13)
--- NOTE | 2018-12-11 10:13 | ED Physician Documentation ---
PD HPI MALE - Stated complaint Stated Complaint: MALE /SENT BY - Chief complaint Chief Complaint: UTI - History obtained from History obtained from: Patient, Family - History of Present Illness Timing - onset: How many days ago (2) Timing - duration: Days Timing - details: Gradual onset, Still present Associated symptoms: Dysuria, Urinary frequency, Other (urinary incontinence) PD HPI MALE CONTRIB FACTORS: No: Indwelling catheter Similar symptoms before: Has not had sx before Recently seen: Not recently seen - Additional information Additional information: No fever, no chills. No blood in urine. No abdominal pain or back pain. No nausea or vomiting. Review of Systems Ten Systems: 10 systems reviewed and negative Constitutional: denies: Fever, Chills GI: denies: Abdominal Pain, Nausea, Vomiting : reports: Dysuria, Frequency, Incontinent. denies: Hematuria Skin: denies: Rash PD PAST MEDICAL HISTORY - Past Medical History Past Medical History: Yes Cardiovascular: Hypertension, High cholesterol, Atrial fibrillation Respiratory: None Endocrine/Autoimmune: Type 2 diabetes GI: Chronic diarrhea, Other : None HEENT: None Psych: None Musculoskeletal: Other Derm: Other - Past Surgical History Past Surgical History: Yes General: Colonoscopy, EGD, Other HEENT: Cataracts - Present Medications Home Medications: Ambulatory Orders Medication Instructions Recorded Confirmed Gabapentin [Neurontin] 100 mg PO QDBREAKFAST 02/05/13 01/04/18 Levothyroxine [Synthroid] 112 mcg PO QDBREAKFAST 02/05/13 01/04/18 Lisinopril 2.5 mg PO DAILY 02/05/13 01/04/18 Simvastatin [Zocor] 10 mg PO DAILY 02/05/13 01/04/18 Warfarin Sodium [Coumadin] 2 mg PO ONCE 02/05/13 01/04/18 Glipizide [Glipizide ER] 5 mg PO DAILY 05/09/13 01/04/18 Multivitamin [Gummi Bear 1 each PO DAILY 05/09/13 01/04/18 Multivitamin] Vitamin B Complex [B Complex] 1 each PO DAILY 05/09/13 01/04/18 Cholecalciferol (Vitamin D3) 2,000 unit PO DAILY 06/19/14 01/04/18 [Vitamin D-3] Metoprolol Succinate 12.5 mg PO QDBREAKFAST 06/19/14 01/04/18 Tamsulosin [Flomax] 0.4 mg ORAL DAILY 08/19/17 01/04/18 Diltiazem HCl [Cardizem] 120 mg PO QDDINNER 09/12/17 01/04/18 Gabapentin 200 mg PO QDDINNER 09/12/17 01/04/18 Psyllium [Metamucil] 1 each PO DAILY 09/12/17 01/04/18 Warfarin Sodium [Coumadin] 1 mg PO ONCE 09/12/17 01/04/18 Cephalexin [Keflex] 500 mg PO BID #14 capsule 12/11/18 Phenazopyridine HCl 200 mg PO TID PRN #9 tablet 12/11/18 - Allergies Allergies/Adverse Reactions: Allergies Allergy/AdvReac Type Severity Reaction Status Date / Time No Known Drug Allergies Allergy Verified 12/11/18 09:48 - Social History Does the pt smoke?: No Smoking Status: Never smoker Does the pt drink ETOH?: No Does the pt have substance abuse?: No - Immunizations Immunizations are current?: No Immunizations: TDAP >10years/unknown - POLST Patient has POLST: No PD ED PE NORMAL - Vitals Vital signs reviewed: Yes - General General: Alert and oriented X 3 - HEENT HEENT: Atraumatic - Neck Neck: Supple, no meningeal sign - Cardiac Cardiac: RRR, No murmur - Respiratory Respiratory: No respiratory distress - Abdomen Abdomen: Soft, Non tender, Non distended - Male Male : Deferred - Rectal Rectal: Deferred - Back Back: No CVA TTP - Derm Derm: Normal color, Warm and dry, No rash - Extremities Extremities: No deformity - Neuro Neuro: Alert and oriented X 3 Eye Opening: Spontaneous Motor: Obeys Commands Verbal: Oriented GCS Score: 15 - Psych Psych: Normal mood, Normal affect Results - Vitals Vitals: Vital Signs - 24 hr 12/11/18 09:46 Temperature 36.6 C Heart Rate 103 H Respiratory 18 Rate Blood Pressure 144/99 H O2 Saturation 99 Oxygen O2 Source Room air - Labs Labs: Laboratory Tests 12/11/18 09:44 Urine Color YELLOW Urine Clarity HAZY Urine pH 6.0 Ur Specific [place] 1.020 Urine Protein TRACE Urine Glucose (UA) 500 H Urine Ketones NEGATIVE Urine Occult Blood LARGE H Urine Nitrite POSITIVE H Urine Bilirubin NEGATIVE Urine Urobilinogen 0.2 (NORMAL) Ur Leukocyte Esterase SMALL H Urine RBC 6-10 H Urine WBC >25 H Ur Squamous Epith Cells NONE SEEN Urine Bacteria Moderate H Ur Microscopic Review INDICATED Urine Culture Comments INDICATED UTI present, mild hematuria PD MEDICAL DECISION MAKING - ED course Complexity details: reviewed results, re-evaluated patient, considered differential, d/w patient ED course: DDx - UTI, urinary retention, kidney stone, STD 83 y/o M with urinary symptoms for a few days, unable to get into his doctor's office thus sent here by PCP. Pt has signs and symptoms of an uncomplicated UTI. His UA is obviously positive. Given dose of rocephin here and will start keflex as outpt with pyridium as needed for discomfort. Departure - Departure Disposition: Home, Self Care Clinical Impression: UTI (urinary tract infection) Qualifiers: Urinary tract infection type: site unspecified Hematuria presence: with hematuria Qualified Code(s): N39.0 - Urinary tract infection, site not specified Condition: Stable Record reviewed to determine appropriate education?: Yes Instructions: ED UTI Cystitis Male Follow-Up: Daryl Casper MD [Primary Care Provider] - As Needed Prescriptions: Cephalexin [Keflex] 500 mg PO BID #14 capsule Phenazopyridine HCl 200 mg PO TID PRN #9 tablet PRN Reason: Pain Print Language: Arabic Comments: You have a UTI. Take pyridium 3 times a day as needed for pain. take the antibiotics until complete. Return to the ED if worsening pain, fever or new concerns.
[2018-12-11] MEDS ORDERED: PHENAZOPYRIDINE 100 MG TABLET PO STA (10:24)
[2018-12-11] MEDS ORDERED: LIDOCAINE 1% 2 ML VIAL MC ONE (10:24)
[2018-12-11] MEDS ORDERED: cefTRIAXone 1 GM VIAL IM STA (10:24)
[2018-12-11 10:53] VITALS: BP 140/96
== END 2018-12-11 10:52 | disposition home or self-care (01) ==
LOC: ED 09:30
DX: N39.0 Urinary tract infection, site not specified (principal); I10 Essential (primary) hypertension; E11.9 Type 2 diabetes mellitus without complications; Z79.84 Long term (current) use of oral hypoglycemic drugs; Z79.01 Long term (current) use of anticoagulants
CPT/HCPCS: 81001; 87077; 87086; 87181; 96372; 99283; A9270; 81003

== ENCOUNTER 2018-12-15 08:00 | Outpatient (CLI) | payer MEDICARE, OTHER ==
[2018-12-15 18:28] LABS: ALBUMIN 3.9 g/dL (3.2-5.5); BILIRUBIN,TOTAL 0.6 mg/dL (0.2-1.0); CALCIUM 8.9 mg/dL (8.5-10.3); TOTAL PROTEIN 7.9 g/dL (6.7-8.2)
== END 2018-12-15 23:59 | disposition home or self-care (01) ==
LOC: LAB.F 08:00
PROVIDERS: ATTEND Physician Assistant Medical
DX: N39.0 Urinary tract infection, site not specified (principal); I10 Essential (primary) hypertension
CPT/HCPCS: 36415; 80053

== ENCOUNTER 2018-12-15 09:40 | Outpatient (CLI) | payer MEDICARE, OTHER | END 2018-12-15 09:41 | disposition home or self-care (01) | LOC: LAB.F 09:40 | PROVIDERS: ATTEND Internal Medicine | DX: I48.0 Paroxysmal atrial fibrillation (principal); Z79.01 Long term (current) use of anticoagulants; N39.0 Urinary tract infection, site not specified; I10 Essential (primary) hypertension | CPT/HCPCS: 36415; 80053; 85610 ==

== ENCOUNTER 2018-12-23 08:00 | Outpatient (CLI) | payer MEDICARE, OTHER | END 2018-12-23 23:59 | disposition home or self-care (01) | LOC: LAB.R 08:00 | PROVIDERS: ATTEND Nurse Practitioner | DX: N39.0 Urinary tract infection, site not specified (principal) | CPT/HCPCS: 87077; 87086; 87181 ==

== ENCOUNTER 2018-12-26 12:03 | Outpatient (CLI) | payer MEDICARE, OTHER | END 2018-12-26 12:04 | disposition home or self-care (01) | LOC: LAB.F 12:03 | PROVIDERS: ATTEND Internal Medicine | DX: I48.0 Paroxysmal atrial fibrillation (principal); Z79.01 Long term (current) use of anticoagulants | CPT/HCPCS: 85610 ==

== ENCOUNTER 2019-01-12 11:04 | Outpatient (CLI) | payer MEDICARE, OTHER | END 2019-01-12 11:05 | disposition home or self-care (01) | LOC: LAB.S 11:04 | PROVIDERS: ATTEND Nurse Practitioner | DX: Z79.01 Long term (current) use of anticoagulants (principal) | CPT/HCPCS: 85610 ==

== ENCOUNTER 2019-02-06 10:42 | Outpatient (CLI) | payer MEDICARE, OTHER | END 2019-02-06 10:43 | disposition home or self-care (01) | LOC: LAB.F 10:42 | PROVIDERS: ATTEND Internal Medicine | DX: I48.0 Paroxysmal atrial fibrillation (principal); Z79.01 Long term (current) use of anticoagulants | CPT/HCPCS: 85610 ==

== ENCOUNTER 2019-02-21 13:38 | Outpatient (CLI) | payer MEDICARE, OTHER ==
[2019-02-21 14:22] LABS: CREATININE 1.1 mg/dL (0.6-1.2)
== END 2019-02-21 13:39 | disposition home or self-care (01) ==
LOC: LAB 13:38
PROVIDERS: ATTEND Internal Medicine Gastroenterology
DX: R97.0 Elevated carcinoembryonic antigen [CEA] (principal); Z85.048 Personal history of other malignant neoplasm of rectum, rectosigmoid junction, and anus; E11.9 Type 2 diabetes mellitus without complications; I11.0 Hypertensive heart disease with heart failure; I50.9 Heart failure, unspecified
CPT/HCPCS: 36415; 82565

== ENCOUNTER 2019-02-21 14:15 | Outpatient (CLI) | payer MEDICARE, OTHER ==
[2019-02-21] MEDS ORDERED: IOVERSOL 320 100 ML VIAL IVP ONE ×2 (14:31→18:20)
[2019-02-21] MEDS ORDERED: IOVERSOL 320 50 ML VIAL ONE (14:31)
[2019-02-21] MEDS ORDERED: IOVERSOL 320 50 ML VIAL PO ONE (18:20)
--- NOTE | 2019-02-22 16:48 | CT Report ---
Reason: FECAL INCONTINENCE, ELEVATED CARCINOEMBROYONIC ANT Procedure Date: 02/21/2019 Accession Number: [id number] / [id number] Procedure: CT - Abdomen/Pelvis W CPT Code: FULL RESULT: EXAM: CT ABDOMEN AND PELVIS EXAM DATE: 02/21/2019 04:20 PM. CLINICAL HISTORY: FECAL INCONTINENCE, ELEVATED CARCINOEMBRYONIC ANT. History of rectal cancer COMPARISONS: ABDOMEN/PELVIS W/ 09/07/2017 1:57 PM. TECHNIQUE: Routine helical CT imaging was performed through the abdomen and pelvis. IV contrast: OPTI 320 100ML. Enteric contrast: No. Reconstructions: Coronal and sagittal. In accordance with CT protocol optimization, one or more of the following dose reduction techniques were utilized for this exam: automated exposure control, adjustment of mA and/or KV based on patient size, or use of iterative reconstructive technique. FINDINGS: Liver: Fatty infiltrated. No masses. Gallbladder/Bile Ducts: Cholelithiasis Spleen: Normal. Pancreas: Atrophic Adrenal Glands: Normal. Kidneys: Right kidney subcentimeter density upper pole too small to characterize. The kidney unremarkable. Peritoneal Cavity/Bowel: Duodenal diverticulum.. No free fluid, free air or adenopathy. No masses or acute inflammatory process. The appendix is well visualized and normal. Pelvic Organs: Postsurgical changes in the rectum with pre-sacral soft tissue thickening appears similar.. Bladder unremarkable. 6 mm right external lymph node stable. Vasculature: Atherosclerotic changes Bones: DJD spine Other: None. IMPRESSION: 1. Postsurgical changes in the rectum, presacral soft tissues 2. Cholelithiasis [facility]
--- NOTE | 2019-02-22 16:48 | CT Report ---
Reason: FECAL INCONTINENCE, ELEVATED CARCINOEMBROYONIC ANT Procedure Date: 02/21/2019 Accession Number: [id number] / [id number] Procedure: CT - CHEST W CPT Code: FULL RESULT: EXAM: CT CHEST EXAM DATE: 02/21/2019 04:20 PM. CLINICAL HISTORY: FECAL INCONTINENCE, ELEVATED CARCINOEMBRYONIC ANT. Rectal cancer history COMPARISONS: ABDOMEN/PELVIS W09/07/2017 1:57 PM CHEST W09/07/2017 1:57 PM. TECHNIQUE: Routine helical CT imaging was performed through the chest. IV contrast: None. Reconstructions: Coronal and sagittal. In accordance with CT protocol optimization, one or more of the following dose reduction techniques were utilized for this exam: automated exposure control, adjustment of mA and/or KV based on patient size, or use of iterative reconstructive technique. FINDINGS: Lungs/Pleura: Bibasilar dependent changes. No nodules, bronchial thickening, consolidation, or edema. Pulmonary vasculature is normal. No pericardial or pleural effusion. No pneumothorax. Mediastinum: Ascending aortic aneurysm 4.3 cm stable . Severe coronary artery calcifications. Mild cardiomegaly. No pericardial effusion. Subcentimeter mediastinal lymph nodes Bones: [place] right lateral rib. DJD spine Other: None. IMPRESSION: 1. No evidence for metastatic disease. 2. Ascending aortic aneurysm 4.3 cm stable. [facility]
== END 2019-02-21 14:16 | disposition home or self-care (01) ==
LOC: DI 14:15
PROVIDERS: ATTEND Internal Medicine Gastroenterology
DX: R15.9 Full incontinence of feces (principal); I71.2 Thoracic aortic aneurysm, without rupture; K80.20 Calculus of gallbladder without cholecystitis without obstruction; R97.0 Elevated carcinoembryonic antigen [CEA]; Z85.048 Personal history of other malignant neoplasm of rectum, rectosigmoid junction, and anus; E11.9 Type 2 diabetes mellitus without complications; I11.0 Hypertensive heart disease with heart failure; I50.9 Heart failure, unspecified
CPT/HCPCS: 36415; 71260; 74177; 82565; Q9967

== ENCOUNTER 2019-02-22 10:51 | Outpatient (CLI) | payer MEDICARE, OTHER | END 2019-02-22 10:52 | disposition home or self-care (01) | LOC: LAB.S 10:51 | PROVIDERS: ATTEND Internal Medicine | DX: I48.0 Paroxysmal atrial fibrillation (principal); Z79.01 Long term (current) use of anticoagulants | CPT/HCPCS: 85610 ==

== ENCOUNTER 2019-02-27 07:31 | Day surgery (SDC) | payer MEDICARE, OTHER ==
[2019-02-27] MEDS ORDERED: LACTATED RINGERS 1,000 ML IV ONE (07:58)
[2019-02-27] MEDS ORDERED: MIDAZOLAM 2 MG/2 ML VIAL IVP ONE (09:55)
[2019-02-27] MEDS ORDERED: fentaNYL 250 MCG/5 ML VIAL IVP ONE (09:55)
[2019-02-27 11:22] VITALS: BP 124/64
== END 2019-02-27 07:32 | disposition home or self-care (01) ==
LOC: SDS 07:31
PROVIDERS: ATTEND Internal Medicine Gastroenterology
PROC: 0DBM8ZZ Excision of Descending Colon, Via Natural or Artificial Opening Endoscopic (ICD-10-PCS; 2019-02-27)
PROC: 0DBK8ZZ Excision of Ascending Colon, Via Natural or Artificial Opening Endoscopic (ICD-10-PCS; principal; 2019-02-27 09:15)
DX: R97.0 Elevated carcinoembryonic antigen [CEA] (principal); K91.89 Other postprocedural complications and disorders of digestive system; K62.4 Stenosis of anus and rectum; Y84.2 Radiological procedure and radiotherapy as the cause of abnormal reaction of the patient, or of later complication, without mention of misadventure at the time of the procedure; D12.2 Benign neoplasm of ascending colon; D12.4 Benign neoplasm of descending colon; R15.9 Full incontinence of feces; I11.0 Hypertensive heart disease with heart failure; I50.9 Heart failure, unspecified; I48.91 Unspecified atrial fibrillation; E11.42 Type 2 diabetes mellitus with diabetic polyneuropathy; I69.351 Hemiplegia and hemiparesis following cerebral infarction affecting right dominant side; Z79.01 Long term (current) use of anticoagulants; Z85.048 Personal history of other malignant neoplasm of rectum, rectosigmoid junction, and anus; Z92.21 Personal history of antineoplastic chemotherapy; Z92.3 Personal history of irradiation; Z79.899 Other long term (current) drug therapy; Z79.84 Long term (current) use of oral hypoglycemic drugs; Z90.49 Acquired absence of other specified parts of digestive tract
CPT/HCPCS: 45380; 85610; J3010; J7120

== ENCOUNTER 2019-03-02 11:13 | Outpatient (CLI) | payer MEDICARE, OTHER | END 2019-03-02 11:14 | disposition home or self-care (01) | LOC: LAB.S 11:13 | PROVIDERS: ATTEND Internal Medicine | DX: I48.0 Paroxysmal atrial fibrillation (principal); Z79.01 Long term (current) use of anticoagulants | CPT/HCPCS: 85610 ==

== ENCOUNTER 2019-03-29 11:40 | Outpatient (CLI) | payer MEDICARE, OTHER | END 2019-03-29 11:41 | disposition home or self-care (01) | LOC: LAB.S 11:40 | PROVIDERS: ATTEND Internal Medicine | DX: Z79.01 Long term (current) use of anticoagulants (principal); I48.0 Paroxysmal atrial fibrillation | CPT/HCPCS: 85610 ==

== ENCOUNTER 2019-05-16 10:28 | Outpatient (CLI) | payer MEDICARE, OTHER | END 2019-05-16 10:29 | disposition home or self-care (01) | LOC: LAB.S 10:28 | PROVIDERS: ATTEND Internal Medicine | DX: Z79.01 Long term (current) use of anticoagulants (principal); I48.0 Paroxysmal atrial fibrillation | CPT/HCPCS: 85610 ==

== ENCOUNTER 2019-05-25 13:29 | Outpatient (CLI) | payer MEDICARE, OTHER | END 2019-05-25 13:30 | disposition home or self-care (01) | LOC: LAB.S 13:29 | PROVIDERS: ATTEND Internal Medicine | DX: Z79.01 Long term (current) use of anticoagulants (principal); I48.0 Paroxysmal atrial fibrillation | CPT/HCPCS: 85610 ==

== ENCOUNTER 2019-06-12 11:08 | Outpatient (CLI) | payer MEDICARE, OTHER | END 2019-06-12 23:59 | LOC: LAB.S 11:08 | PROVIDERS: ATTEND Internal Medicine | DX: Z79.01 Long term (current) use of anticoagulants (principal); I48.0 Paroxysmal atrial fibrillation | CPT/HCPCS: 85610 ==

== ENCOUNTER 2019-06-29 01:50 | Outpatient (CLI) | payer MEDICARE, OTHER ==
--- NOTE | 2019-06-29 09:03 | CONSULTATION NOTE ---
Referring Provider Name of Referring Provider:: Dr. Kelsey Consult Date: 06/29/19 Chief Complaint - Chief Complaint Chief Complaint: GI bleed History of Present Illness - Admitted From Admitted From:: ER - History Obtained From Records Reviewed: yes History obtained from: pt, , records Exam Limitations: none - History of Present Illness HPI Comment/Other: 83 yo male who noted onset of dark bloody bms yesterday afternoon, which persisted through the evening prompting ER evaluation last night and admission. Multiple black tarry foul smelling bms since onset. No prior similar. No abd pain, N/V, or wt loss. No hx PUD. Takes occasional NSAID for aches/pains but not daily. On warfarin for AFIB and INR is 3.6. Hgb 11 on admission. Hx rectal cancer, s/p low anterior resection in 2001 along with radiation and chemotherapy and followed in the [facility]; has chronic elevation of his CEA but thought to be EDUARDO. Colonoscopy in February of this year showed several small adenomas, mild tics and ow EDUARDO. No syncope but was dizzy this am getting up to bedside commode. Pt has been given vit K, FFP and started on pantoprazole. Surgical consultation was requested. He has been hemodynamically stable. History - Past Medical History Cardiovascular: reports: Hypertension, High cholesterol, Atrial fibrillation Respiratory: reports: None Neuro: reports: CVA Endocrine/Autoimmune: reports: Type 2 diabetes GI: reports: Other (rectal cancer 2002 s/p radiation/chemo and surgery) : reports: None HEENT: reports: None Psych: reports: None Musculoskeletal: reports: Other Derm: reports: Other MRSA Hx?: No - Past Surgical History General: reports: Bowel surgery (Low anterior resection 2001), Colonoscopy (2019: adenomas x 2; mild tics; EDUARDO) HEENT: reports: Cataracts - Family & Social History Living arrangement: At home Living Situation: With spouse/s.o. - Substance History Use: Uses substance without health or social issues: NONE - POLST Patient has POLST: No Meds/Allgy - Home Medications Home Medications: Ambulatory Orders Medication Instructions Recorded Confirmed Lisinopril 2.5 mg PO DAILY 02/05/13 06/29/19 Simvastatin [Zocor] 10 mg PO DAILY 02/05/13 06/29/19 Warfarin Sodium [Coumadin] 2 mg PO ONCE 02/05/13 06/29/19 Glipizide [Glipizide ER] 5 mg PO DAILY 05/09/13 06/29/19 Multivitamin [Gummi Bear 1 each PO DAILY 05/09/13 06/29/19 Multivitamin] Vitamin B Complex [B Complex] 1 each PO DAILY 05/09/13 06/29/19 Cholecalciferol (Vitamin D3) 2,000 unit PO DAILY 06/19/14 06/29/19 [Vitamin D-3] Metoprolol Succinate 12.5 mg PO QDBREAKFAST 06/19/14 06/29/19 Tamsulosin [Flomax] 0.4 mg ORAL DAILY 08/19/17 06/29/19 Gabapentin 200 mg PO QDDINNER 09/12/17 06/29/19 Psyllium [Metamucil] 1 each PO DAILY 09/12/17 04/09/19 Warfarin Sodium [Coumadin] 1 mg PO ONCE 09/12/17 06/29/19 Levothyroxine [Synthroid] 112.5 mcg PO QDBREAKFAST 06/29/19 06/29/19 - Allergies Allergies/Adverse Reactions: Allergies Allergy/AdvReac Type Severity Reaction Status Date / Time No Known Drug Allergies Allergy Verified 06/29/19 02:33 Review of Systems - Constitutional Constitutional: denies: Fever, Chills, Weight gain, Weight loss - Cardiovascular Cariovascular: reports: Irregular heart rate, Lightheadedness. denies: Syncope - Respiratory Respiratory: denies: Cough - Gastrointestinal Gastrointestinal: reports: Rectal bleeding, Black stools. denies: Abdominal pain, Abdominal distention, Constipation, Diarrhea, Nausea, Vomiting - Hematologic/Lymphatic Hematologic/Lymphatic: denies: Anemia, Blood clots, Bleeding tendencies - All Other Systems All Other Systems: reports: Reviewed and negative (or covered in HPI/PMH) Exam - Vital Signs Reviewed Vital Signs: Yes - Physical Exam General Appearance: positive: No acute distress, Alert Eyes Bilateral: positive: Conjunctivae nml (pale), No scleral icterus ENT: positive: ENT inspection nml, Dry mucous membranes Neck: positive: No JVD, Trachea midline. negative: Lymphadenopathy (R), Lymphadenopathy (L) Respiratory: positive: Chest non-tender, No respiratory distress, Breath sounds nml Cardiovascular: positive: No murmur, Irregularly irregular Abdomen: positive: Non-tender, No organomegaly, No distention. negative: Hepatomegaly, Splenomegaly, Mass Skin: positive: Warm, Dry, Pallor. negative: Cyanosis Extremities: positive: No pedal edema. negative: Calf tenderness Neurologic/Psychiatric: positive: Oriented x3 Conclusion and Plan - Diagnosis Diagnosis: GI bleed, major, likely upper given melena and recent favorable colonoscopy. DDX includes PUD, gastritis, varices, dieulafoy lesion, esophagitis, neoplasm, angiodysplasia; lower gi source such as diverticular, angiodysplasia much less likely. Evidence of ongoing bleeding; anticoagulation status is being reversed. Hemodynamically stable. - Plan Plan: Agree with NPO, IVF, FFP, vit k, transfuse prbcs as necessary, PPI therapy. Plan EGD today for attempt at definitive diagnosis and therapy. PAR conf with pt and and consent obtained. Thanks, Assess/Plan - Patient Problems Active Problems List: Current Active Problems Acute blood loss anemia (Acute) Anemia (Acute) BPH (benign prostatic hyperplasia) (Acute) GI bleed (Acute) History of CVA with residual deficit (Acute) History of rectal cancer (Acute) Hypertension (Acute) Hypothyroidism (Acute) Type 2 diabetes mellitus (Acute) - Additional Planning Plan Discussed with:: Patient, Family Time Spent: 31-60 minutes
--- NOTE | 2019-06-29 10:51 | PROCEDURE REPORT ---
Hospitalist Procedure Note - Procedure Note Procedure Note: EGD: 1. large duodenal ulcer with pigmented spot; oozing blood; treated with clips x 2 and injection with control of bleeding 2. mild antral gastritis, bx for path and H. pylori pending. Rec: continue present management.
== END 2019-06-29 01:51 | disposition critical access hospital (66) ==
LOC: EMS 01:50
PROVIDERS: ATTEND Surgery
DX: K62.5 Hemorrhage of anus and rectum (principal); R55 Syncope and collapse
CPT/HCPCS: A0425; A0427

== ENCOUNTER 2019-06-29 02:23 | Inpatient (IN) | payer MEDICARE, OTHER ==
--- NOTE | 2019-06-29 02:45 | ED Physician Documentation ---
History of Present Illness - Stated complaint Stated Complaint: RECTAL BLEED - Chief complaint Chief Complaint: General - Additonal information Additional information: This is an 83-year-old male with a history of atrial fibrillation on warfarin, rectal cancer status post resection around [address] Griggs, CVA without residual deficits, who presents with GI bleeding and lightheadedness upon standing. Patient states that he had some GI bleeding in the past with his rectal cancer many years ago, but none since then. 2 days ago he began having very dark stools with some red blood mixed in, he has had multiple bowel mo vements daily of this color and consistency. Today he began to feel weak when he stood up and somewhat lightheaded so he called an ambulance and was brought here for further evaluation. He denies any chest pain, shortness of breath, or abdominal pain. He did have a colonoscopy and a CT in February of this year which did not show any recurrence of his rectal cancer. Review of Systems Constitutional: denies: Fever Nose: denies: Rhinorrhea / runny nose Cardiac: denies: Chest pain / pressure Respiratory: denies: Dyspnea GI: reports: Bloody / black stool : denies: Dysuria Skin: denies: Rash Neurologic: reports: Generalized weakness Immunocompromised: denies: Immunocompromised PD PAST MEDICAL HISTORY - Past Medical History Past Medical History: Yes Cardiovascular: Hypertension, High cholesterol, Atrial fibrillation Respiratory: None Endocrine/Autoimmune: Type 2 diabetes GI: Chronic diarrhea, Other : None HEENT: None Psych: None Musculoskeletal: Other Derm: Other - Past Surgical History Past Surgical History: Yes General: Colonoscopy, EGD, Other HEENT: Cataracts - Present Medications Home Medications: Ambulatory Orders Medication Instructions Recorded Confirmed Levothyroxine [Synthroid] 112 mcg PO QDBREAKFAST 02/05/13 06/29/19 Lisinopril 2.5 mg PO DAILY 02/05/13 06/29/19 Simvastatin [Zocor] 10 mg PO DAILY 02/05/13 06/29/19 Warfarin Sodium [Coumadin] 2 mg PO ONCE 02/05/13 06/29/19 Glipizide [Glipizide ER] 5 mg PO DAILY 05/09/13 06/29/19 Multivitamin [Gummi Bear 1 each PO DAILY 05/09/13 06/29/19 Multivitamin] Vitamin B Complex [B Complex] 1 each PO DAILY 05/09/13 06/29/19 Cholecalciferol (Vitamin D3) 2,000 unit PO DAILY 06/19/14 06/29/19 [Vitamin D-3] Metoprolol Succinate 12.5 mg PO QDBREAKFAST 06/19/14 06/29/19 Tamsulosin [Flomax] 0.4 mg ORAL DAILY 08/19/17 06/29/19 Gabapentin 200 mg PO QDDINNER 09/12/17 06/29/19 Psyllium [Metamucil] 1 each PO DAILY 09/12/17 04/09/19 Warfarin Sodium [Coumadin] 1 mg PO ONCE 09/12/17 06/29/19 - Allergies Allergies/Adverse Reactions: Allergies Allergy/AdvReac Type Severity Reaction Status Date / Time No Known Drug Allergies Allergy Verified 06/29/19 02:33 - Social History Does the pt smoke?: No Smoking Status: Never smoker Does the pt drink ETOH?: No Does the pt have substance abuse?: No - Immunizations Immunizations are current?: No Immunizations: TDAP >10years/unknown - POLST Patient has POLST: No PD ED PE NORMAL - Vitals Vital signs reviewed: Yes - General General: Alert and oriented X 3, No acute distress - HEENT HEENT: PERRL - Neck Neck: Supple, no meningeal sign - Cardiac Cardiac: No murmur, Other (Irregularly irregular rhythm, tachycardic) - Respiratory Respiratory: No respiratory distress, Clear bilaterally - Abdomen Abdomen: Normal bowel sounds, Soft, Non tender, Non distended - Rectal Rectal: Other (Chaperoned by JULIO Portillo: External perianal area is normal in appearance, there is maroon stool present with obvious blood mixed in.) - Derm Derm: Warm and dry - Extremities Extremities: No deformity - Neuro Neuro: Alert and oriented X 3 - Psych Psych: Normal mood, Normal affect Results - Vitals Vitals: Vital Signs - 24 hr 06/29/19 02:29 Temperature 36.6 C Heart Rate 111 H Respiratory 18 Rate Blood Pressure 113/81 H O2 Saturation 95 Oxygen O2 Source Room air - EKG (time done) 2:33 Other comments: Other comments (Rate 114, rhythm atrial fibrillation. There is no ST segment elevation or depression. Qtc 463) - Labs Labs: Laboratory Tests 06/29/19 06/29/1919 02:45 02:45 02:45 WBC 7.1 RBC 3.87 L Hgb 11.4 L Hct 35.3 L MCV 91.2 MCH 29.5 MCHC 32.3 RDW 13.4 Plt Count 214 MPV 10.4 Neut # (Auto) 5.3 Lymph # (Auto) 1.1 L Piatt # (Auto) 0.5 Eos # (Auto) 0.2 Baso # (Auto) 0.1 Absolute Nucleated RBC 0.00 Nucleated RBC % 0.0 PT 39.9 H INR 3.8 H Sodium 136 Potassium 4.6 Chloride 105 Carbon Dioxide 22 Anion Gap 9.0 BUN 36 H Creatinine 1.1 Estimated GFR (MDRD) 64 L Glucose 170 H Calcium 8.5 Total Bilirubin 0.8 AST 20 ALT 18 Alkaline Phosphatase 48 Total Protein 6.2 L Albumin 3.2 Globulin 3.0 Albumin/Globulin Ratio 1.1 Lipase 33 Blood Type Antibody Screen 06/29/19 02:45 WBC RBC Hgb Hct MCV MCH MCHC RDW Plt Count MPV Neut # (Auto) Lymph # (Auto) Piatt # (Auto) Eos # (Auto) Baso # (Auto) Absolute Nucleated RBC Nucleated RBC % PT INR Sodium Potassium Chloride Carbon Dioxide Anion Gap BUN Creatinine Estimated GFR (MDRD) Glucose Calcium Total Bilirubin AST ALT Alkaline Phosphatase Total Protein Albumin Globulin Albumin/Globulin Ratio Lipase Blood Type A POSITIVE Antibody Screen NEGATIVE PD MEDICAL DECISION MAKING - ED course Complexity details: considered differential (Lower GI bleed, upper GI bleed, diverticulosis, infectious diarrhea, anemia, hypovolemia) ED course: On arrival patient is in atrial fibrillation with mild tachycardia his rate is bouncing between 100-120. He does become somewhat lightheaded when he sits up quickly. IVs were inserted labs drawn, patient was placed on the monitor,and given 500ml bolus follow by maintenance fluids. His hemoglobin is 11.4 which has dropped over 2 points from his prior value. His INR is also slightly supratherapeutic at 3.8, and patient states that he took his warfarin this evening. He does have a slightly elevated BUN at 36, his creatinine is normal. On his exam he has maroon stool and he had an additional bowel movement which was maroon and bloody while he was in the emergency department. Given his anticoagulant use and his GI bleeding, he was admitted to the hospitalist service. I discussed with Dr. Kelsey reversal of his warfarin. His hemoglobin is not critical at this time. Given his supratherapeutic INR we decided to reverse him with a small dose of oral vitamin K, and he will have close trending of his CBC and if he has significant dropping then we will reverse with FFP, IV vitamin K, or PCC as appropriate. Pt has had a somewhat recent CT and colonoscopy that shows no obvious cancer recurrece. Patient continues to have a benign abdominal exam and and is hemodynamically stable at the time of admission. Departure - Departure Disposition: ED Place in Observation Clinical Impression: GI bleed Qualifiers: GI bleed type/associated pathology: unspecified gastrointestinal hemorrhage type Qualified Code(s): K92.2 - Gastrointestinal hemorrhage, unspecified Anemia Qualifiers: Anemia type: unspecified type Qualified Code(s): D64.9 - Anemia, unspecified Condition: Stable Discharge Date/Time: 06/29/19 04:49
[2019-06-29 03:01] LABS: BASOPHILS # (AUTO) 0.1 10^3/uL (0.0-0.1); BASOPHILS % (AUTO) 0.7 %; EOSINOPHILS # (AUTO) 0.2 10^3/uL (0.0-0.7); EOSINOPHILS % (AUTO) 2.1 %; HGB - HEMOGLOBIN 11.4 g/dL (14.0-18.0); LYMPHOCYTES # (AUTO) 1.1 10^3/uL (1.5-3.5); LYMPHOCYTES % (AUTO) 15.4 %; MEAN CORPUSCULAR HEMOGLOBIN 29.5 pg (27.0-31.0); MEAN CORPUSCULAR HGB CONC 32.3 g/dL (32.0-36.0); MEAN CORPUSCULAR VOLUME 91.2 fL (80.0-94.0); MEAN PLATELET VOLUME 10.4 fL (7.4-11.4); MONOCYTES # (AUTO) 0.5 10^3/uL (0.0-1.0); MONOCYTES % (AUTO) 6.9 %; NEUTROPHILS # (AUTO) 5.3 10^3/uL (1.5-6.6); NEUTROPHILS % (AUTO) 74.5 %; PLT - PLATELET COUNT 214 10^3/uL (130-450); RED BLOOD COUNT 3.87 10^6/uL (4.70-6.10); RED CELL DISTRIBUTION WIDTH 13.4 % (12.0-15.0); WHITE BLOOD COUNT 7.1 x10^3/uL (4.8-10.8)
[2019-06-29 03:06] LABS: INR 3.8 (0.8-1.2); PT - PROTHROMBIN TIME 39.9 secs (9.9-12.6)
[2019-06-29] MEDS ORDERED: PANTOPRAZOLE 40 MG VIAL IVP STA (03:11)
[2019-06-29 03:14] LABS: ALBUMIN 3.2 g/dL (3.2-5.5); ALBUMIN/GLOBULIN RATIO 1.1 (1.0-2.2); BILIRUBIN,TOTAL 0.8 mg/dL (0.2-1.0); CALCIUM 8.5 mg/dL (8.5-10.3); CREATININE 1.1 mg/dL (0.6-1.2); TOTAL PROTEIN 6.2 g/dL (6.7-8.2)
[2019-06-29] MEDS ORDERED: PHYTONADIONE 10 MG/ML AMP PO ONE (03:37)
[2019-06-29] MEDS ORDERED: ACETAMINOPHEN 325 MG TABLET PO PRN (03:37)
[2019-06-29] MEDS ORDERED: CHERRY SYRUP 10 ML UDC PO ONE (03:37)
[2019-06-29] MEDS ORDERED: ONDANSETRON 4 MG/2 ML VIAL IVP PRN (03:37)
[2019-06-29] MEDS ORDERED: LACTATED RINGERS 1,000 ML IV SCH ×3 (04:00→22:43)
--- NOTE | 2019-06-29 04:28 | HISTORY & PHYSICAL EXAMINATION ---
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 He states his been going to the bathroom every half an hour and that he has noticed dark stool with blood. He reports no associated abdominal pain or nausea/vomiting. He states he had prior rectal bleeding in the past and that was when he was diagnosed with rectal cancer in 2001. He underwent resection and has had no further episodes of bleeding since then. He did undergo colonoscopy in February 2019 which revealed two polyps that were negative for malignancy. He has not had a recent EGD. He reports no alcohol use. He does not take baby aspirin but does take liang back and body a couple of times a week for back pain. He last took a dose few days ago. He reports no other NSAID use. He denies fevers, chills, abdominal pain. He does report feeling dizzy and lightheaded when he attempted to get out of bed and onto the bedside commode. In the emergency department, he was found to be afebrile, tachycardic with a heart rate of 111 and in atrial fibrillation, normotensive with a blood pressure of 113/81. He was not tachypneic and saturating well on room air. Georgetet labs revealed hemoglobin 11.4 which is decreased compared to his baseline. His INR is elevated at 3.8. His BUN is also elevated at 36. He did have one bloody bowel movement emergency department which was dark. He was given vitamin K 2.5 mg orally. Given these findings, medicine was consulted for admission. Of note, I did discuss goals of care with the patient and he would like to be a full code at this time. History - Past Medical History Cardiovascular: reports: Hypertension, High cholesterol, Atrial fibrillation Respiratory: reports: None Neuro: reports: CVA Endocrine/Autoimmune: reports: Type 2 diabetes GI: reports: Chronic diarrhea, Other (Rectal cancer) : reports: None HEENT: reports: None Psych: reports: None Musculoskeletal: reports: Other Derm: reports: Other MRSA Hx?: No - Past Surgical History General: reports: Colonoscopy, EGD, Other HEENT: reports: Cataracts - Family & Social History Family History Comment/Other: Reports his father from myocardial infarction. Reports no other family history. Living arrangement: At home Living Situation: With spouse/s.o. Social History Notes: He lives at home with his significant other. 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 He does not smoke and has a history of smoking. Denies alcohol use. - POLST Patient has POLST: No Meds/Allgy - Home Medications Home Medications: Ambulatory Orders Medication Instructions Recorded Confirmed Levothyroxine [Synthroid] 112 mcg PO QDBREAKFAST 02/05/13 06/29/19 Lisinopril 2.5 mg PO DAILY 02/05/13 06/29/19 Simvastatin [Zocor] 10 mg PO DAILY 02/05/13 06/29/19 Warfarin Sodium [Coumadin] 2 mg PO ONCE 02/05/13 06/29/19 Glipizide [Glipizide ER] 5 mg PO DAILY 05/09/13 06/29/19 Multivitamin [Gummi Bear 1 each PO DAILY 05/09/13 06/29/19 Multivitamin] Vitamin B Complex [B Complex] 1 each PO DAILY 05/09/13 06/29/19 Cholecalciferol (Vitamin D3) 2,000 unit PO DAILY 06/19/14 06/29/19 [Vitamin D-3] Metoprolol Succinate 12.5 mg PO QDBREAKFAST 06/19/14 06/29/19 Tamsulosin [Flomax] 0.4 mg ORAL DAILY 08/19/17 06/29/19 Gabapentin 200 mg PO QDDINNER 09/12/17 06/29/19 Psyllium [Metamucil] 1 each PO DAILY 09/12/17 04/09/19 Warfarin Sodium [Coumadin] 1 mg PO ONCE 09/12/17 06/29/19 - Allergies Allergies/Adverse Reactions: Allergies Allergy/AdvReac Type Severity Reaction Status Date / Time No Known Drug Allergies Allergy Verified 06/29/19 02:33 Review of Systems - Constitutional Constitutional: reports: Fatigue. denies: Fever, Chills, Malaise, Weakness - Cardiovascular Cariovascular: reports: Lightheadedness. denies: Chest pain, Edema, Exertional dyspnea, Decr. exercise tolerance - Respiratory Respiratory: denies: SOB at rest, SOB with exertion - Gastrointestinal Gastrointestinal: reports: Rectal bleeding, Bloody stools. denies: Abdominal pain, Nausea, Vomiting - Musculoskeletal Musculoskeletal: reports: Limited range of motion, Muscle weakness - Integumentary Integumentary: denies: Rash - Neurological Neurological: reports: Focal weakness, Dizziness, Numbness. denies: General weakness - Hematologic/Lymphatic Hematologic/Lymphatic: denies: Bleeding tendencies - All Other Systems All Other Systems: reports: Reviewed and negative Prior Level of Functionality: He is able to ambulate on his own although his gait is ataxic given his residual right lower extremity weakness. Exam - Vital Signs Reviewed Vital Signs: Yes Vital Signs: Vital Signs x48h Temp Pulse Resp BP Pulse Ox 06/29/19 03:45 120 H 18 105/70 96 06/29/19 02:29 36.6 C 111 H 18 113/81 H 95 - Physical Exam General Appearance: positive: No acute distress, Alert Eyes Bilateral: positive: Normal inspection ENT: positive: ENT inspection nml, Dry mucous membranes Neck: positive: Nml inspection Respiratory: positive: No respiratory distress Cardiovascular: positive: No murmur, Irregularly irregular, Tachycardia. neg ative: Bradycardia Abdomen: positive: Non-tender, No distention. negative: Tenderness, Guarding, Rebound Skin: positive: No rash, Warm, Dry, Pallor Extremities: positive: Full ROM, No pedal edema Neurologic/Psychiatric: positive: Oriented x3, Other (He has 5 out of 5 motor strength in his bilateral upper extremities and left lower extremity. He has 3 out of 5 motor strength in the right lower extremity. Sensation is intact.). negative: Disoriented to person, Disoriented to place, Disoriented to time Conclusion/Plan - Problem List (1) GI bleed Conclusion/Plan: Suspect this is an upper GI bleed given his NSAID use and reported melena. He did have a colonoscopy in February of 2019 which he had two polyps removed which were both tubular adenomas and negative for high-grade dysplasia. He is anticoagulated with Coumadin and his INR is elevated at 3.8. At this time, will start him on Protonix IV. We will make him n.p.o. for likely endoscopy. General surgery consult. Qualifiers: GI bleed type/associated pathology: unspecified gastrointestinal hemorrhage type Qualified Code(s): K92.2 - Gastrointestinal hemorrhage, unspecified (2) Acute blood loss anemia Conclusion/Plan: His hemoglobin is decreased to 11.4 compared to a baseline of 14. This is likely secondary to the GI bleed. Will continue to monitor his hemoglobin every 8 hours. Will not transfuse for the time being unless he has significant drop in his hemoglobin or becomes hypotensive. Will use SCDs for DVT prophylaxis. He is agreeable to transfusion if needed. (3) Elevated INR Conclusion/Plan: His INR is elevated at 3.8. We will reverse this with fresh frozen plasma as he will likely require an endoscopy. He is agreeable to transfusion. He was given 2.5 mg of vitamin K as well. Continue to monitor his INR daily. 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 He is on glipizide and gabapentin at home. We will place him on sliding scale for the time being. Will resume his gabapentin. (5) Hypertension Conclusion/Plan: History of hypertension for which he takes lisinopril. He is currently normotensive. We will hold his home antihypertensives in the setting of GI bleed.Hydrate him with IV fluids for the time being. If he becomes hypotensive, we will transfuse him with packed red blood cells. (6) History of rectal cancer Conclusion/Plan: He has history of rectal cancer for which he underwent radiation and resection back in 2001. He has had a chronically elevated CEA. Last colonoscopy was n egative for malignancy. He continues to follow with oncology. (7) Chronic a-fib Conclusion/Plan: He has chronic atrial fibrillation for which he takes Coumadin as well as metoprolol. He is currently tachycardic with rates in the low 100s to 110s. This is likely secondary to his ongoing bleeding. We will continue to hold his home metoprolol for the time being has not mask tachycardia from ongoing bleeding. Will monitor him on telemetry. (8) Hypothyroidism Conclusion/Plan: Stable. Will resume his home Synthroid. (9) BPH (benign prostatic hyperplasia) Conclusion/Plan: Stable. Will resume his home Flomax once he is stable from a GI bleed perspective. (10) History of CVA with residual deficit Conclusion/Plan: He has history of CVA with residual right lower extremity weakness. He is on Coumadin given the history of atrial fibrillation. We will resume his statin but hold the Coumadin given the GI bleed. - Lab Results Lab results reviewed: Yes Fish Bones: 06/29/19 02:45 06/29/19 02:45
[2019-06-29] MEDS ORDERED: INSULIN REGULAR HUMAN 300 UNIT/3 ML VIAL SUBQ SCH (06:00)
[2019-06-29] MEDS: LEVOTHYROXINE 112 MCG TABLET PO SCH (07:08)
[2019-06-29] MEDS ORDERED: METOPROLOL SUCCINATE 25 MG TABLET PO SCH (08:00)
[2019-06-29 09:19] LABS: HGB - HEMOGLOBIN 10.8 g/dL (14.0-18.0)
--- NOTE | 2019-06-29 09:19 | ANESTHESIA ---
Pre-Anesthesia VS, & Labs - Diagnosis GI Bleed - Procedure EGD Vital Signs: Temp Pulse Resp BP Pulse Ox 36.6 C 87 18 120/56 L 94 06/29/19 08:03 06/29/19 08:03 06/29/19 08:03 06/29/19 08:03 06/29/19 07:47 Height 5 ft 8 in Weight (kg) 90 kg Body Mass Index 28.8 - NPO >8 hours - Lab Results Current Lab Results: Laboratory Tests 06/29/19 02:45: Blood Type A POSITIVE, Antibody Screen NEGATIVE 06/29/19 02:45: Sodium 136, Potassium 4.6, Chloride 105, Carbon Dioxide 22, Anion Gap 9.0, BUN 36 H, Creatinine 1.1, Estimated GFR (MDRD) 64 L, Glucose 170 H, Calcium 8.5, Total Bilirubin 0.8, AST 20, ALT 18, Alkaline Phosphatase 48, Total Protein 6.2 L, Albumin 3.2, Globulin 3.0, Albumin/Globulin Ratio 1.1, Lipase 33 06/29/19 02:45: PT 39.9 H, INR 3.8 H 06/29/19 02:45: WBC 7.1, RBC 3.87 L, Hgb 11.4 L, Hct 35.3 L, MCV 91.2, MCH 29.5, MCHC 32.3, RDW 13.4, Plt Count 214, MPV 10.4, Neut # (Auto) 5.3, Lymph # (Auto) 1.1 L, [place] # (Auto) 0.5, Eos # (Auto) 0.2, Baso # (Auto) 0.1, Absolute Nuc leated RBC 0.00, Nucleated RBC % 0.0 Fish Bones: 06/29/19 02:45 06/29/19 02:45 Home Medications and Allergies Active Medications Acetaminophen (Tylenol) 650 mg PO Q4HR PRN PRN Reason: Pain 1 to 4 Lactated Ringer's (Lr) 1,000 mls @ 100 mls/hr IV .Q10H SWETHA Last Admin: 06/29/19 05:22 Dose: 100 mls/hr Insulin Human Regular (Humulin R) 1 - 5 unit SUBQ Q6HR SWETHA; Protocol Last Admin: 06/29/19 07:02 Dose: Not Given Levothyroxine Sodium (Synthroid) 112 mcg PO QDAC [facility] Last Admin: 06/29/19 07:08 Dose: 112 mcg Ondansetron HCl (Zofran Inj) 4 mg IVP Q6HR PRN PRN Reason: Nausea / Vomiting Pantoprazole Sodium (Protonix) 40 mg IVP BID [facility] Sodium Chloride (Normal Saline Flush 0.9%) 10 ml IVP PRN PRN PRN Reason: NEEDED PER PROVIDER ORDERS Sodium Chloride (Normal Saline Flush 0.9%) 10 ml IVP 0100,0900,1700 [facility] Tamsulosin HCl (Flomax) 0.4 mg PO DAILY [facility] Levothyroxine [Synthroid] 112 mcg PO QDBREAKFAST 02/05/13 Lisinopril 2.5 mg PO DAILY 02/05/13 Simvastatin [Zocor] 10 mg PO DAILY 02/05/13 Warfarin Sodium [Coumadin] 2 mg PO ONCE 02/05/13 Glipizide [Glipizide ER] 5 mg PO DAILY 05/09/13 Multivitamin [G[place]mi Bear Multivitamin] 1 each PO DAILY 05/09/13 Vitamin B Complex [B Complex] 1 each PO DAILY 05/09/13 Cholecalciferol (Vitamin D3) [Vitamin D-3] 2,000 unit PO DAILY 06/19/14 Metoprolol Succinate 12.5 mg PO QDBREAKFAST 06/19/14 Tamsulosin [Flomax] 0.4 mg ORAL DAILY 08/19/17 Gabapentin 200 mg PO QDDINNER 09/12/17 Psyllium [Metamucil] 1 each PO DAILY 09/12/17 Warfarin Sodium [Coumadin] 1 mg PO ONCE 09/12/17 Allergies/Adverse Reactions: Allergies Allergy/AdvReac Type Severity Reaction Status Date / Time No Known Drug Allergies Allergy Verified 06/29/19 02:33 Anes History & Medical History - Anesthetic History Anesthesia Complications: reports: No previous complications - Medical History Cardiovascular: reports: Hypertension, High cholesterol, Atrial fibrillation Pulmonary: reports: None Gastrointestinal: reports: GI bleed, Chronic diarrhea Urinary: reports: None Neuro: reports: CVA (right side residual) Musculoskeletal: reports: Other Endocrine/Autoimmune: reports: Type 2 diabetes, HyPOthyroidism Skin: reports: Other Smoking Status: Never smoker Psychosocial: reports: No issues indicated - Surgical History General: Colonoscopy, EGD, Other (resection for rectal cancer 2002) Eyes Ears Nose Throat (EENT): Cataracts Exam General: Alert, Oriented x3, Cooperative, No acute distress Dental: Poor dentition Mouth Openin Fingerbreadth Neck Mobility: Normal Mallampati classification: II Thyromental Distance: greater than 6 cm Respiratory: Lungs clear, Normal breath sounds, No respiratory distress, No accessory muscle use Cardiovascular: Other (irregular, syst. murmur) Mental/Cognitive Status: Alert/Oriented X3, Normal for patient Plan Anesthesia Type: MAC Consent for Procedure(s) Verified and Reviewed: Yes Code Status: Attempt Resuscitation ASA classification: 3-Severe systemic disease Is this case an emergency?: Yes
[2019-06-29 09:21] LABS: INR 2.7 (0.8-1.2); PT - PROTHROMBIN TIME 29.5 secs (9.9-12.6)
[2019-06-29] MEDS: PANTOPRAZOLE 40 MG VIAL IVP SCH ×2 (09:25→21:44)
[2019-06-29] MEDS: SODIUM CHLORIDE FLUSH 0.9% 10 ML SYRINGE IVP SCH ×2 (09:25→19:35)
[2019-06-29 09:41] LABS: HEMOGLOBIN A1C 0.69 g/dL; HEMOGLOBIN A1C % 7.9 % (4.6-6.2)
[2019-06-29] MEDS ORDERED: SODIUM CHLORIDE 0.9% 100 ML IV ONE (09:46)
[2019-06-29] MEDS ORDERED: EPINEPHrine 1 MG/ML AMP IJ ONE (10:12)
--- NOTE | 2019-06-29 10:34 | PHARMACY PROGRESS NOTE ---
- Best Possible Medication History Admit Date and Time: 06/29/19 0338 Processed by: Nursing Medication History completed: Yes Patient Interview: Completed As the person ultimately responsible for medication therapy, providers are able to order a medication from an existing home medication list in [facility] via the "Reconcile Routine" prior to Confirmation of that medication by java support engineer. Such practice is discouraged except when the physician, in their clinical judg ment, deems that a medical need exists for a medication without regard to previous use.
[2019-06-29] MEDS: TAMSULOSIN 0.4 MG CAPSULE PO SCH (12:39)
[2019-06-29] MEDS: INSULIN ASPART 300 UNIT/3 ML PEN SUBQ SCH ×4 (12:39→21:33)
[2019-06-29] MEDS: METOPROLOL SUCCINATE 25 MG TABLET PO SCH ×2 (15:38→16:24)
[2019-06-29 16:14] LABS: HGB - HEMOGLOBIN 9.5 g/dL (14.0-18.0)
[2019-06-29] MEDS: GABAPENTIN 100 MG CAPSULE PO SCH (18:26)
[2019-06-29] MEDS ORDERED: METOPROLOL 5 MG/5 ML VIAL IVP PRN (18:59)
[2019-06-29] MEDS ORDERED: diltiaZEM 30 MG TABLET PO SCH (19:00)
[2019-06-30 00:18] LABS: HGB - HEMOGLOBIN 9.5 g/dL (14.0-18.0)
[2019-06-30] MEDS: SODIUM CHLORIDE FLUSH 0.9% 10 ML SYRINGE IVP SCH ×3 (01:26→16:57)
[2019-06-30 06:09] LABS: BASOPHILS % (AUTO) 0.7 %; EOSINOPHILS # (AUTO) 0.3 10^3/uL (0.0-0.7); EOSINOPHILS % (AUTO) 4.5 %; HGB - HEMOGLOBIN 9.8 g/dL (14.0-18.0); LYMPHOCYTES # (AUTO) 1.4 10^3/uL (1.5-3.5); LYMPHOCYTES % (AUTO) 24.9 %; MEAN CORPUSCULAR HEMOGLOBIN 30.4 pg (27.0-31.0); MEAN CORPUSCULAR HGB CONC 32.7 g/dL (32.0-36.0); MEAN CORPUSCULAR VOLUME 93.2 fL (80.0-94.0); MEAN PLATELET VOLUME 10.2 fL (7.4-11.4); MONOCYTES # (AUTO) 0.4 10^3/uL (0.0-1.0); MONOCYTES % (AUTO) 6.5 %; NEUTROPHILS # (AUTO) 3.5 10^3/uL (1.5-6.6); NEUTROPHILS % (AUTO) 63.2 %; PLT - PLATELET COUNT 201 10^3/uL (130-450); RED BLOOD COUNT 3.22 10^6/uL (4.70-6.10); RED CELL DISTRIBUTION WIDTH 13.3 % (12.0-15.0); WHITE BLOOD COUNT 5.5 x10^3/uL (4.8-10.8)
[2019-06-30 06:12] LABS: PT - PROTHROMBIN TIME 22.1 secs (9.9-12.6)
[2019-06-30] MEDS: LEVOTHYROXINE 112 MCG TABLET PO SCH (06:14)
[2019-06-30 06:19] LABS: CALCIUM 8.7 mg/dL (8.5-10.3); CREATININE 1.1 mg/dL (0.6-1.2); MAGNESIUM 1.9 mg/dL (1.7-2.8)
[2019-06-30] MEDS ORDERED: LEVOTHYROXINE 75 MCG TABLET PO SCH (07:00)
[2019-06-30] MEDS ORDERED: LACTATED RINGERS 1,000 ML IV SCH (07:44)
--- NOTE | 2019-06-30 07:47 | PROVIDER PROGRESS NOTE ---
Assessment/Plan - Problem List (1) GI bleed Qualifiers: GI bleed type/associated pathology: duodenal ulcer Qualified Code(s): K26.4 - Chronic or unspecified duodenal ulcer with hemorrhage Assessment/Plan: Clinically stable with stable vs and H/H; still passing dark/bloody stools but none x 8 hours; GI bleed appears to be resolving. Rec: continue IV high dose PPI, observation, serial H/H; allow INR to normalize, does not appear to need blood transfusion at this time; advance to full liq diet, OOB as sharona. - Current Meds Current Meds: Current Medications Generic Name Dose Route Start Last Admin Trade Name Freq PRN Reason Stop Dose Admin Gabapentin 200 mg 06/29/19 17:00 06/29/19 18:26 Neurontin PO 200 mg QDDINNER SWETHA Administration Insulin Aspart 1 - 5 unit 06/29/19 12:30 06/29/19 21:33 Novolog SUBQ Not Given 0800,1200,1700,2100 [facility] Protocol Levothyroxine Sodium 112 mcg 06/29/19 07:00 06/30/19 06:14 Synthroid PO 112 mcg QDAC SWETHA Administration Metoprolol Succinate 12.5 mg 06/29/19 13:00 06/29/19 16:24 Toprol Xl PO 12.5 mg DAILY SWETHA Administration Ondansetron HCl 4 mg 06/29/19 03:37 06/29/19 10:53 Zofran Inj IVP 4 mg Q6HR PRN Administration Nausea / Vomiting Pantoprazole Sodium 40 mg 06/29/19 09:00 06/29/19 21:44 Protonix IVP 40 mg BID SWETHA Administration Sodium Chloride 10 ml 06/29/19 09:00 06/30/19 01:26 Normal Saline Flush 0.9% IVP Not Given 0100,0900,1700 SWETHA Tamsulosin HCl 0.4 mg 06/29/19 09:00 06/29/19 12:39 Flomax PO 0.4 mg DAILY SWETHA Administration - Lab Result Fish Bone Diagrams: 06/30/19 05:55 06/30/19 05:55 Other Lab Results: INR 2.0 - Additional Planning Condition/Complexity: Improved My Orders: My Active Orders 06/29/19 10:38 BIENVENIDO TEST [RAPID] Stat 06/29/19 Lunch Clear Liquid Diet [DIET] 06/30/19 07:42 AMANDA Hose and SCDs [RC] QSHIFT 06/30/19 07:44 Lactated Ringers [Lr] 1,000 ml IV 50 mls/hr 06/30/19 Lunch Full Liquid Diet [DIET] Plan Discussed with:: Patient, Other (hospitalist) Time Spent: 15-30 minutes Subjective - Subjective Patient Reports: Resting Comfortably, No Complaints (no bm since last night; no abd pain, N/V; tolerating clear liquids well; no dizziness or weakness) Objective Vital Signs: Vital Signs - 24 hr 06/29/19 06/29/19 06/29/19 07:47 07:50 08:03 Temperature 36.6 C 36.5 C 36.6 C Heart Rate 88 87 Heart Rate [ 97 Radial] Respiratory 18 18 18 Rate Blood Pressure 108/62 120/56 L Blood Pressure [Left Brachial artery] Blood Pressure 114/62 [Right Brachial artery] O2 Saturation 94 06/29/19 06/29/19 06/29/19 09:25 09:30 09:40 Temperature 36.6 C 36.5 C 36.5 C Heart Rate 89 96 90 Heart Rate [ Radial] Respiratory 18 18 18 Rate Blood Pressure 123/51 L 107/53 L 118/56 L Blood Pressure [Left Brachial artery] Blood Pressure [Right Brachial artery] O2 Saturation 06/29/19 06/29/19 06/29/19 10:25 10:35 10:40 Temperature 36.8 C 36.8 C Heart Rate 99 Heart Rate [ 119 H 104 H Radial] Respiratory 14 18 16 Rate Blood Pressure 119/54 L Blood Pressure [Left Brachial artery] Blood Pressure 119/54 L 142/66 H [Right Brachial artery] O2 Saturation 93 98 06/29/19 06/29/19 06/29/19 11:10 11:40 15:52 Temperature 36.8 C 36.5 C Heart Rate Heart Rate [ 100 116 H 119 H Radial] Respiratory 16 18 20 Rate Blood Pressure Blood Pressure [Left Brachial artery] Blood Pressure 137/51 H 134/75 H 100/70 [Right Brachial artery] O2 Saturation 98 93 98 06/29/19 06/29/19 06/29/19 16:20 18:00 18:27 Temperature Heart Rate Heart Rate [ 101 H 140 H 121 H Radial] Respiratory 18 Rate Blood Pressure Blood Pressure 123/56 L 91/50 L 121/63 [Left Brachial artery] Blood Pressure [Right Brachial artery] O2 Saturation 06/29/19 06/29/19 06/29/19 20:15 20:24 23:50 Temperature 36.5 C 36.3 C L 36.5 C Heart Rate 93 Heart Rate [ 108 H 96 Radial] Respiratory 16 20 16 Rate Blood Pressure Blood Pressure 99/73 [Left Brachial artery] Blood Pressure 108/57 L [Right Brachial artery] O2 Saturation 100 97 94 06/30/19 03:52 Temperature 36.5 C Heart Rate Heart Rate [ 94 Radial] Respiratory 18 Rate Blood Pressure Blood Pressure [Left Brachial artery] Blood Pressure 124/65 [Right Brachial artery] O2 Saturation 96 Oxygen O2 Source Room air I&O (Last 24 Hrs): Intake and Output Totals x24h 06/28/19 06/29/19 06/30/19 23:59 23:59 23:59 Intake Total 2275 669.177 Output Total 150 600 Balance 2125 69.177 General: Alert, Cooperative, No acute distress Abdomen: Soft, No tenderness, No hepatospenomegaly, No masses Extremities: No edema, No tenderness/swelling - Results Results: Laboratory Results WBC 5.5 x10^3/uL (4.8-10.8) 06/30/19 05:55 RBC 3.22 10^6/uL (4.70-6.10) L 06/30/19 05:55 Hgb 9.8 g/dL (14.0-18.0) L 06/30/19 05:55 Hct 30.0 % (42.0-52.0) L 06/30/19 05:55 MCV 93.2 fL (80.0-94.0) 06/30/19 05:55 MCH 30.4 pg (27.0-31.0) 06/30/19 05:55 MCHC 32.7 g/dL (32.0-36.0) 06/30/19 05:55 RDW 13.3 % (12.0-15.0) 06/30/19 05:55 Plt Count 201 10^3/uL (130-450) 06/30/19 05:55 MPV 10.2 fL (7.4-11.4) 06/30/19 05:55 Neut # (Auto) 3.5 10^3/uL (1.5-6.6) 06/30/19 05:55 Lymph # (Auto) 1.4 10^3/uL (1.5-3.5) L 06/30/19 05:55 [place] # (Auto) 0.4 10^3/uL (0.0-1.0) 06/30/19 05:55 Eos # (Auto) 0.3 10^3/uL (0.0-0.7) 06/30/19 05:55 Baso # (Auto) 0.0 10^3/uL (0.0-0.1) 06/30/19 05:55 Absolute Nucleated RBC 0.00 x10^3/uL 06/30/19 05:55 Nucleated RBC % 0.0 /100WBC 06/30/19 05:55 PT 22.1 secs (9.9-12.6) H 06/30/19 05:55 INR 2.0 (0.8-1.2) H 06/30/19 05:55 Sodium 140 mmol/L (135-145) 06/30/19 05:55 Potassium 4.4 mmol/L (3.5-5.0) 06/30/19 05:55 Chloride 108 mmol/L (101-111) 06/30/19 05:55 Carbon Dioxide 24 mmol/L (21-32) 06/30/19 05:55 Anion Gap 8.0 (6-13) 06/30/19 05:55 BUN 23 mg/dL (6-20) H 06/30/19 05:55 Creatinine 1.1 mg/dL (0.6-1.2) 06/30/19 05:55 Estimated GFR (MDRD) 64 (>89) L 06/30/19 05:55 Glucose 134 mg/dL (70-100) H 06/30/19 05:55 Glycated Hemoglobin 7.9 % (4.6-6.2) H 06/29/19 08:56 Estim Average Glucose 180 (70-100) H 06/29/19 08:56 Calcium 8.7 mg/dL (8.5-10.3) 06/30/19 05:55 Magnesium 1.9 mg/dL (1.7-2.8) 06/30/19 05:55 Total Bilirubin 0.8 mg/dL (0.2-1.0) 06/29/19 02:45 AST 20 IU/L (10-42) 06/29/19 02:45 ALT 18 IU/L (10-60) 06/29/19 02:45 Alkaline Phosphatase 48 IU/L (42-121) 06/29/19 02:45 Total Protein 6.2 g/dL (6.7-8.2) L 06/29/19 02:45 Albumin 3.2 g/dL (3.2-5.5) 06/29/19 02:45 Globulin 3.0 g/dL (2.1-4.2) 06/29/19 02:45 Albumin/Globulin Ratio 1.1 (1.0-2.2) 06/29/19 02:45 Lipase 33 U/L (22-51) 06/29/19 02:45 TSH 6.66 uIU/mL (0.34-5.60) H 06/30/19 05:55 Blood Type A POSITIVE 06/29/19 02:45 Antibody Screen NEGATIVE 06/29/19 02:45 - Procedures Procedures: Procedures CATARAC PHACOEMULS/ASPIR (06/20/14) CONTROL BLEEDING IN GASTROINTESTINAL TRACT, ENDO (09/23/17) EXCISION OF ASCENDING COLON, ENDO (02/27/19) EXCISION OF DESCENDING COLON, ENDO (02/27/19) EXCISION OF RECTUM, ENDO, DIAGN (09/23/17) EXCISION OF SIGMOID COLON, ENDO, DIAGN (09/23/17) EXCISION OF TRANSVERSE COLON, ENDO, DIAGN (09/23/17) INSERT LENS AT CATAR EXT (06/20/14) REPLACEMENT OF LEFT LENS WITH SYNTH SUB, PERC APPROACH (09/04/15) ABX Reporting Has patient been on IV antibiotics over the past 48 hours?: No
[2019-06-30] MEDS: INSULIN ASPART 300 UNIT/3 ML PEN SUBQ SCH ×4 (08:05→20:53)
[2019-06-30] MEDS: lisinopriL 5 MG TABLET PO SCH (08:31)
[2019-06-30] MEDS: MULTIVITAMIN TABLET PO SCH (08:31)
[2019-06-30] MEDS: PANTOPRAZOLE 40 MG VIAL IVP SCH ×2 (08:32→20:52)
[2019-06-30] MEDS: TAMSULOSIN 0.4 MG CAPSULE PO SCH (08:32)
[2019-06-30] MEDS: METOPROLOL SUCCINATE 25 MG TABLET PO SCH (08:37)
[2019-06-30 08:38] LABS: HGB - HEMOGLOBIN 9.4 g/dL (14.0-18.0)
[2019-06-30] MEDS: LEVOTHYROXINE 125 MCG TABLET PO SCH (11:05)
--- NOTE | 2019-06-30 12:16 | PROVIDER PROGRESS NOTE ---
Assessment/Plan - Problem List (1) GI bleed Qualifiers: GI bleed type/associated pathology: duodenal ulcer Qualified Code(s): K26.4 - Chronic or unspecified duodenal ulcer with hemorrhage Assessment/Plan: 06/30 pt is still passing dark/bloody stools but none x 8 hours. pt report he felt better, denies pain or fever, chill, N/V/D. pt was found to have large gastric ulcer and it was clipped per surgeon's report continue PPI continue H&H monitor resume diet (2) Acute blood loss anemia Conclusion/Plan: 06/30 HGB is relative stable, now HGB is 9.5. pt has 8 hours no bloody stool. will continue H&H continue PPI (3) Elevated INR Conclusion/Plan: INR is 2.0 today, since pt still has bloody stool 8 hours ago, continue to hold coumadin. (4) Type 2 diabetes mellitus Conclusion/Plan: stable, continue SS, and gabapentin. (5) Hypertension Conclusion/Plan: stable (6) History of rectal cancer Conclusion/Plan: He has history of rectal cancer and had a chronically elevated CEA. advise continues to follow with oncology. (7) Chronic a-fib Conclusion/Plan: stable now, continue metoprolol. hold Coumadin, monitor him on telemetry. (8) Hypothyroidism Conclusion/Plan: Stable. Will resume his home Synthroid. (9) BPH (benign prostatic hyperplasia) Conclusion/Plan: Stable. Will resume his home Flomax once he is stable from a GI bleed perspective. (10) History of CVA with residual deficit Conclusion/Plan: He has history of CVA with residual right lower extremity weakness, plan: resume his statin but hold the Coumadin given the GI bleed. - Current Meds Current Meds: Current Medications Generic Name Dose Route Start Last Admin Trade Name Freq PRN Reason Stop Dose Admin Gabapentin 200 mg 06/29/19 17:00 06/29/19 18:26 Neurontin PO 200 mg QDDINNER SWETHA Administration Lactated Ringer's 1,000 mls @ 50 mls/hr 06/30/19 07:44 06/30/19 08:01 Lr IV 07/01/19 03:40 50 mls/hr .Q20H SWETHA Administration Insulin Aspart 1 - 5 unit 06/29/19 12:30 06/30/19 08:05 Novolog SUBQ Not Given 0800,1200,1700,2100 [facility] Protocol Levothyroxine Sodium 125 mcg 06/30/19 09:00 06/30/19 11:05 Synthroid PO 125 mcg QDAC SWETHA Administration Lisinopril 2.5 mg 06/30/19 09:00 06/30/19 08:31 Zestril PO 2.5 mg DAILY SWETHA Administration Metoprolol Succinate 12.5 mg 06/29/19 13:00 06/30/19 08:37 Toprol Xl PO 12.5 mg DAILY SWETHA Administration Multivitamins 1 tab 06/30/19 08:00 06/30/19 08:31 Theragran PO 1 tab DAILYWM SWETHA Administration Ondansetron HCl 4 mg 06/29/19 03:37 06/29/19 10:53 Zofran Inj IVP 4 mg Q6HR PRN Administration Nausea / Vomiting Pantoprazole Sodium 40 mg 06/29/19 09:00 06/30/19 08:32 Protonix IVP 40 mg BID SWETHA Administration Sodium Chloride 10 ml 06/29/19 09:00 06/30/19 08:38 Normal Saline Flush 0.9% IVP 10 ml 0100,0900,1700 SWETHA Administration Tamsulosin HCl 0.4 mg 06/29/19 09:00 06/30/19 08:32 Flomax PO 0.4 mg DAILY SWETHA Administration - Lab Result Fish Bone Diagrams: 06/30/19 08:00 06/30/19 05:55 - Additional Planning My Orders: My Active Orders 06/29/19 12:30 Insulin Aspart [NovoLOG] 1 - 5 unit SUBQ 0800,1200,1700,2100 06/29/19 13:00 Metoprolol Succinate [Toprol Xl] 12.5 mg PO DAILY 06/29/19 17:00 Gabapentin [Neurontin] 200 mg PO QDDINNER 06/29/19 18:35 Vital Signs - Orthostatic [RC] DAILY 06/29/19 18:59 Metoprolol Inj [Lopressor Inj] 5 mg IVP Q6H PRN 06/30/19 08:00 Multivitamin [Theragran] 1 tab PO DAILYWM 06/30/19 09:00 Levothyroxine [Synthroid] 125 mcg PO QDAC Lisinopril [Zestril] 2.5 mg PO DAILY Subjective - Subjective Patient Reports: Feeling Better Objective Vital Signs: Vital Signs - 24 hr 06/29/19 06/29/19 06/29/19 15:52 16:20 18:00 Temperature 36.5 C Heart Rate Heart Rate [ 119 H 101 H 140 H Radial] Heart Rate [ Sitting (After 1 Minute)] Heart Rate [ Standing (After 1 Minute)] Heart Rate [ Supine] Respiratory 20 Rate Blood Pressure 123/56 L 91/50 L [Left Brachial artery] Blood Pressure 100/70 [Right Brachial artery] Blood Pressure [Sitting (After 1 Minute)] Blood Pressure [Standing ( After 1 Minute) ] Blood Pressure [Supine] O2 Saturation 98 06/29/19 06/29/19 06/29/19 18:27 20:15 20:24 Temperature 36.5 C 36.3 C L Heart Rate 93 Heart Rate [ 121 H 108 H Radial] Heart Rate [ Sitting (After 1 Minute)] Heart Rate [ Standing (After 1 Minute)] Heart Rate [ Supine] Respiratory 18 16 20 Rate Blood Pressure 121/63 99/73 [Left Brachial artery] Blood Pressure [Right Brachial artery] Blood Pressure [Sitting (After 1 Minute)] Blood Pressure [Standing ( After 1 Minute) ] Blood Pressure [Supine] O2 Saturation 100 97 06/29/19 06/30/19 06/30/19 23:50 03:52 07:54 Temperature 36.5 C 36.5 C 36.7 C Heart Rate Heart Rate [ 96 94 95 Radial] Heart Rate [ Sitting (After 1 Minute)] Heart Rate [ Standing (After 1 Minute)] Heart Rate [ Supine] Respiratory 16 18 18 Rate Blood Pressure [Left Brachial artery] Blood Pressure 108/57 L 124/65 118/85 H [Right Brachial artery] Blood Pressure [Sitting (After 1 Minute)] Blood Pressure [Standing ( After 1 Minute) ] Blood Pressure [Supine] O2 Saturation 94 96 97 06/30/19 09:28 Temperature Heart Rate Heart Rate [ Radial] Heart Rate [ 103 H Sitting (After 1 Minute)] Heart Rate [ 107 H Standing (After 1 Minute)] Heart Rate [ 89 Supine] Respiratory Rate Blood Pressure [Left Brachial artery] Blood Pressure [Right Brachial artery] Blood Pressure 103/67 [Sitting (After 1 Minute)] Blood Pressure 107/54 L [Standing ( After 1 Minute) ] Blood Pressure 114/59 L [Supine] O2 Saturation Oxygen O2 Source Room air I&O (Last 24 Hrs): Intake and Output Totals x24h 06/28/19 06/29/19 06/30/19 23:59 23:59 23:59 Intake Total 2275 1149.177 Output Total 150 1000 Balance 2125 149.177 General: Alert, Oriented x3, No acute distress HEENT: Atraumatic Neck: Supple Lymphatic: no adenopathy Neuro: Alert, Non Focal, Oriented Times 3 Cardiovascular: Regular rate, Normal S1, Normal S2 Respiratory: Chest non-tender, No respiratory distress, Breath sounds nml Abdomen: Normal bowel sounds, Soft, No tenderness Extremities: Normal pulses - Results Results: Laboratory Results WBC 5.5 x10^3/uL (4.8-10.8) 06/30/19 05:55 RBC 3.22 10^6/uL (4.70-6.10) L 06/30/19 05:55 Hgb 9.4 g/dL (14.0-18.0) L 06/30/19 08:00 Hct 28.4 % (42.0-52.0) L 06/30/19 08:00 MCV 93.2 fL (80.0-94.0) 06/30/19 05:55 MCH 30.4 pg (27.0-31.0) 06/30/19 05:55 MCHC 32.7 g/dL (32.0-36.0) 06/30/19 05:55 RDW 13.3 % (12.0-15.0) 06/30/19 05:55 Plt Count 201 10^3/uL (130-450) 06/30/19 05:55 MPV 10.2 fL (7.4-11.4) 06/30/19 05:55 Neut # (Auto) 3.5 10^3/uL (1.5-6.6) 06/30/19 05:55 Lymph # (Auto) 1.4 10^3/uL (1.5-3.5) L 06/30/19 05:55 [place] # (Auto) 0.4 10^3/uL (0.0-1.0) 06/30/19 05:55 Eos # (Auto) 0.3 10^3/uL (0.0-0.7) 06/30/19 05:55 Baso # (Auto) 0.0 10^3/uL (0.0-0.1) 06/30/19 05:55 Absolute Nucleated RBC 0.00 x10^3/uL 06/30/19 05:55 Nucleated RBC % 0.0 /100WBC 06/30/19 05:55 PT 22.1 secs (9.9-12.6) H 06/30/19 05:55 INR 2.0 (0.8-1.2) H 06/30/19 05:55 Sodium 140 mmol/L (135-145) 06/30/19 05:55 Potassium 4.4 mmol/L (3.5-5.0) 06/30/19 05:55 Chloride 108 mmol/L (101-111) 06/30/19 05:55 Carbon Dioxide 24 mmol/L (21-32) 06/30/19 05:55 Anion Gap 8.0 (6-13) 06/30/19 05:55 BUN 23 mg/dL (6-20) H 06/30/19 05:55 Creatinine 1.1 mg/dL (0.6-1.2) 06/30/19 05:55 Estimated GFR (MDRD) 64 (>89) L 06/30/19 05:55 Glucose 134 mg/dL (70-100) H 06/30/19 05:55 Glycated Hemoglobin 7.9 % (4.6-6.2) H 06/29/19 08:56 Estim Average Glucose 180 (70-100) H 06/29/19 08:56 Calcium 8.7 mg/dL (8.5-10.3) 06/30/19 05:55 Magnesium 1.9 mg/dL (1.7-2.8) 06/30/19 05:55 Total Bilirubin 0.8 mg/dL (0.2-1.0) 06/29/19 02:45 AST 20 IU/L (10-42) 06/29/19 02:45 ALT 18 IU/L (10-60) 06/29/19 02:45 Alkaline Phosphatase 48 IU/L (42-121) 06/29/19 02:45 Total Protein 6.2 g/dL (6.7-8.2) L 06/29/19 02:45 Albumin 3.2 g/dL (3.2-5.5) 06/29/19 02:45 Globulin 3.0 g/dL (2.1-4.2) 06/29/19 02:45 Albumin/Globulin Ratio 1.1 (1.0-2.2) 06/29/19 02:45 Lipase 33 U/L (22-51) 06/29/19 02:45 TSH 6.66 uIU/mL (0.34-5.60) H 06/30/19 05:55 Blood Type A POSITIVE 06/29/19 02:45 Antibody Screen NEGATIVE 06/29/19 02:45 - Procedures Procedures: Procedures CATARAC PHACOEMULS/ASPIR (06/20/14) CONTROL BLEEDING IN GASTROINTESTINAL TRACT, ENDO (09/23/17) EXCISION OF ASCENDING COLON, ENDO (02/27/19) EXCISION OF DESCENDING COLON, ENDO (02/27/19) EXCISION OF RECTUM, ENDO, DIAGN (09/23/17) EXCISION OF SIGMOID COLON, ENDO, DIAGN (09/23/17) EXCISION OF TRANSVERSE COLON, ENDO, DIAGN (09/23/17) INSERT LENS AT CATAR EXT (06/20/14) REPLACEMENT OF LEFT LENS WITH SYNTH SUB, PERC APPROACH (09/04/15) Sepsis Event Note (H) - Evaluation Current Stage of Sepsis: Ruled out ABX Reporting Has patient been on IV antibiotics over the past 48 hours?: No Current Medications - Current Medications Current Medications: Active Medications Acetaminophen (Tylenol) 650 mg PO Q4HR PRN PRN Reason: Pain 1 to 4 Gabapentin (Neurontin) 200 mg PO QDDINNER [facility] Last Admin: 06/29/19 18:26 Dose: 200 mg Lactated Ringer's (Lr) 1,000 mls @ 50 mls/hr IV .Q20H [facility] Stop: 07/01/19 03:40 Last Admin: 06/30/19 08:01 Dose: 50 mls/hr Insulin Aspart (Novolog) 1 - 5 unit SUBQ 0800,1200,1700,2100 [facility]; Protocol Last Admin: 06/30/19 08:05 Dose: Not Given Levothyroxine Sodium (Synthroid) 125 mcg PO QDAC [facility] Last Admin: 06/30/19 11:05 Dose: 125 mcg Lisinopril (Zestril) 2.5 mg PO DAILY [facility] Last Admin: 06/30/19 08:31 Dose: 2.5 mg Metoprolol Succinate (Toprol Xl) 12.5 mg PO DAILY [facility] Last Admin: 06/30/19 08:37 Dose: 12.5 mg Metoprolol Tartrate (Lopressor Inj) 5 mg IVP Q6H PRN PRN Reason: Hypertensive Emergency Multivitamins (Theragran) 1 tab PO DAILYWM [facility] Last Admin: 06/30/19 08:31 Dose: 1 tab Ondansetron HCl (Zofran Inj) 4 mg IVP Q6HR PRN PRN Reason: Nausea / Vomiting Last Admin: 06/29/19 10:53 Dose: 4 mg Pantoprazole Sodium (Protonix) 40 mg IVP BID [facility] Last Admin: 06/30/19 08:32 Dose: 40 mg Sodium Chloride (Normal Saline Flush 0.9%) 10 ml IVP PRN PRN PRN Reason: NEEDED PER PROVIDER ORDERS Sodium Chloride (Normal Saline Flush 0.9%) 10 ml IVP 0100,0900,1700 [facility] Last Admin: 06/30/19 08:38 Dose: 10 ml Tamsulosin HCl (Flomax) 0.4 mg PO DAILY [facility] Last Admin: 06/30/19 08:32 Dose: 0.4 mg Lisinopril 2.5 mg PO DAILY 02/05/13 Simvastatin [Zocor] 10 mg PO DAILY 02/05/13 Warfarin Sodium [Coumadin] 2 mg PO ONCE 02/05/13 Glipizide [Glipizide ER] 5 mg PO DAILY 05/09/13 Multivitamin [Gummi Bear Multivitamin] 1 each PO DAILY 05/09/13 Vitamin B Complex [B Complex] 1 each PO DAILY 05/09/13 Cholecalciferol (Vitamin D3) [Vitamin D-3] 2,000 unit PO DAILY 06/19/14 Metoprolol Succinate 12.5 mg PO QDBREAKFAST 06/19/14 Tamsulosin [Flomax] 0.4 mg ORAL DAILY 08/19/17 Gabapentin 200 mg PO QDDINNER 09/12/17 Psyllium [Metamucil] 1 each PO DAILY 09/12/17 Warfarin Sodium [Coumadin] 1 mg PO ONCE 09/12/17 Levothyroxine [Synthroid] 112.5 mcg PO QDBREAKFAST 06/29/19
[2019-06-30] MEDS: SODIUM CHLORIDE FLUSH 0.9% 10 ML SYRINGE IVP PRN ×2 (16:57→20:52)
[2019-06-30] MEDS: GABAPENTIN 100 MG CAPSULE PO SCH (16:57)
[2019-07-01] MEDS: SODIUM CHLORIDE FLUSH 0.9% 10 ML SYRINGE IVP SCH ×2 (01:51→08:01)
[2019-07-01] MEDS: SODIUM CHLORIDE FLUSH 0.9% 10 ML SYRINGE IVP PRN (05:02)
[2019-07-01 06:24] LABS: BASOPHILS # (AUTO) 0.1 10^3/uL (0.0-0.1); BASOPHILS % (AUTO) 1.1 %; EOSINOPHILS # (AUTO) 0.3 10^3/uL (0.0-0.7); EOSINOPHILS % (AUTO) 6.1 %; HGB - HEMOGLOBIN 9.1 g/dL (14.0-18.0); LYMPHOCYTES # (AUTO) 1.1 10^3/uL (1.5-3.5); LYMPHOCYTES % (AUTO) 22.1 %; MEAN CORPUSCULAR HEMOGLOBIN 30.2 pg (27.0-31.0); MEAN CORPUSCULAR HGB CONC 32.3 g/dL (32.0-36.0); MEAN CORPUSCULAR VOLUME 93.7 fL (80.0-94.0); MEAN PLATELET VOLUME 10.7 fL (7.4-11.4); MONOCYTES # (AUTO) 0.4 10^3/uL (0.0-1.0); MONOCYTES % (AUTO) 7.4 %; NEUTROPHILS % (AUTO) 63.1 %; PLT - PLATELET COUNT 200 10^3/uL (130-450); RED BLOOD COUNT 3.01 10^6/uL (4.70-6.10); RED CELL DISTRIBUTION WIDTH 13.2 % (12.0-15.0); WHITE BLOOD COUNT 4.8 x10^3/uL (4.8-10.8)
[2019-07-01 06:28] LABS: INR 1.6 (0.8-1.2); PT - PROTHROMBIN TIME 18.2 secs (9.9-12.6)
[2019-07-01] MEDS: LEVOTHYROXINE 125 MCG TABLET PO SCH (06:31)
[2019-07-01 06:35] LABS: CALCIUM 8.5 mg/dL (8.5-10.3); CREATININE 1.2 mg/dL (0.6-1.2); MAGNESIUM 1.9 mg/dL (1.7-2.8)
[2019-07-01] MEDS: METOPROLOL SUCCINATE 25 MG TABLET PO SCH (08:00)
[2019-07-01] MEDS: lisinopriL 5 MG TABLET PO SCH (08:00)
[2019-07-01] MEDS: MULTIVITAMIN TABLET PO SCH (08:01)
[2019-07-01] MEDS: PANTOPRAZOLE 40 MG VIAL IVP SCH (08:01)
[2019-07-01] MEDS: TAMSULOSIN 0.4 MG CAPSULE PO SCH (08:01)
[2019-07-01] MEDS: INSULIN ASPART 300 UNIT/3 ML PEN SUBQ SCH (08:01)
--- NOTE | 2019-07-01 08:47 | Discharge Plan ---
Discharge Plan Problem Reviewed?: Yes Disposition: Home, Self Care Condition: Stable Prescriptions: Ferrous Gluconate [Fergon] 270 mg PO DAILY #30 tablet Omeprazole 20 mg PO BID #60 capsule. Diet: Diabetic Activity Restrictions: Activity as Tolerated Shower Restrictions: No Instruction Topics: Peptic Ulcer, ED PUD Vs Gastritis, ED Peptic Ulcer H Pylori Infec Health Concerns: You were admitted with anemia from blood loss and a duodenal ulcer was found. Your Hemoglobin has been stable. Plan of Treatment: Resume your home medications and usual management of Diabetes, BUT STOP THE COUMADIN UNTIL ADVISED TO RESTART IT (in about 1 month), since the risk of bleeding currently outweighs the benefit of stroke prophylaxis. You will be on new Iron tablets and twice a day Omeprazole for treating the ulcer. The prescriptions were electronically sent to [facility] [place]. If the BIENVENIDO test returns from Pathology Lab showing that you had a bacteria that caused the ulcer, an antibiotic will be ordered for you, as well. You need to see Dr Javier Connolly in follow-up for a scope in about 1 month, to see if the ulcer has healed and to get the OK to restart the blood thinner. Avoid using Aspirin or Anti-inflammatory medications like Ibuprofen to prevent ulcer bleeding. Care Goals: Healing of the ulcer and stabilization is the plan Assessment: The patient understands and agrees with the plan Additional Instructions or Follow Up instructions: See your PCP in 5-10 days for hospital follow-up. Call to make an appointment to see Dr Javier Connolly for an office visit ([phone]) and to schedula repeat upper endoscopy. If you have any new or worsening symptoms, call your provider or come to the ER. No Smoking: If you smoke, Please STOP! Call for help. Follow-up with: Edel Reyes PA-C [Primary Care Provider] -
[2019-07-01] MEDS ORDERED: FERROUS GLUCONATE 324 MG TABLET PO SCH (09:00)
[2019-07-01 09:12] VITALS: BP 117/60
--- NOTE | 2019-07-01 09:26 | DISCHARGE SUMMARY ---
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 He states his been going to the bathroom every half an hour and that he has noticed dark stool with blood. He reports no associated abdominal pain or nausea/vomiting. He states he had prior rectal bleeding in the past and that was when he was diagnosed with rectal cancer in 2001. He underwent resection and has had no further episodes of bleeding since then. He did undergo colonoscopy in February 2019 which revealed two polyps that were negative for malignancy. He has not had a recent EGD. He reports no alcohol use. He does not take baby aspirin but does take liang back and body a couple of times a week for back pain. He last took a dose few days ago. He reports no other NSAID use. He denies fevers, chills, abdominal pain. He does report feeling dizzy and lightheaded when he attempted to get out of bed and onto the bedside commode. In the emergency department, he was found to be afebrile, tachycardic with a heart rate of 111 and in atrial fibrillation, normotensive with a blood pressure of 113/81. He was not tachypneic and saturating well on room air. Georgette labs revealed hemoglobin 11.4 which is decreased compared to his baseline. His INR is elevated at 3.8. His BUN is also elevated at 36. He did have one bloody bowel movement emergency department which was dark. He was given vitamin K 2.5 mg orally. - CONSULTS | PROCEDURES Consultations: Dr Javier Connolly Procedures: EGD and colonoscopy - HOSPITAL COURSE Hospital Course: (1) GI bleed On 06/30 pt was still passing dark/bloody stools. He underwent EGD and colonosco py after prep. A large gastric ulcer was found and it was clipped per surgeon's report. BIENVENIDO test was done and results are pending. He was discharged home on Omeprazole 20 mg p.o. bid and is to see Dr. Javier Connolly in 1 month in his office. (2) Acute blood loss anemia His hemoglobin was 9.5 and dropped minimally, to 9.1. He did not receive any blood transfusions. He was sent home with oral iron replacement therapy. (3) Elevated INR His INR was elevated at 3.8. It was reversed with 2U of fresh frozen plasma before the endoscopy. He was given 2.5 mg of vitamin K as well. Coumadin was put on hold. The INR was 2.0 the next day and there was still a bloody stool. After finding the gastric ulcer, the advice was to not use Coumadin for appro ximately a month and there will be a repeat endoscopy by Dr. Connolly in a month, before resuming Coumadin is okay'd. (4) Type 2 diabetes mellitus His A1c ws 7.9. He was kept on a carb controlled diet and sliding scale insulin coverage. (5) Hypertension His home blood pressure medications were continued (6) History of rectal cancer He has history of rectal cancer and had a chronically elevated CEA. Advised to follow with oncology. (7) Chronic a-fib Stable HR, continued on metoprolol. Coumadin was stopped. He was also advised to avoid aspirin and aspirin-containing products like ibuprofen. (8) Hypothyroidism His TSH was elevated at 6.6. His home Synthroid dose of 112 mcg was increased to 125 mcg daily, while here. At discharge, he was advised to resume the old dose and to see the PCP in follow-up for any further adjustments. (9) BPH (benign prostatic hyperplasia) He was on his home Flomax dose. (10) History of CVA with residual deficit He has history of CVA with residual right lower extremity weakness. Hewas continued on his statin but the Coumadin was stopped (as above) - ALLERGIES Allergies/Adverse Reactions: Allergies Allergy/AdvReac Type Severity Reaction Status Date / Time No Known Drug Allergies Allergy Verified 06/29/19 02:33 - MEDICATIONS Home Medications: Ambulatory Orders Medication Instructions Recorded Confirmed Simvastatin [Zocor] 10 mg PO DAILY 02/05/13 06/29/19 lisinopriL [Lisinopril] 2.5 mg PO DAILY 02/05/13 06/29/19 Glipizide [Glipizide ER] 5 mg PO DAILY 05/09/13 06/29/19 Multivitamin [Gummi Bear 1 each PO DAILY 05/09/13 06/29/19 Multivitamin] Vitamin B Complex [B Complex] 1 each PO DAILY 05/09/13 06/29/19 Cholecalciferol (Vitamin D3) 2,000 unit PO DAILY 06/19/14 06/29/19 [Vitamin D3] Metoprolol Succinate 12.5 mg PO QDBREAKFAST 06/19/14 06/29/19 Tamsulosin [Flomax] 0.4 mg ORAL DAILY 08/19/17 06/29/19 Gabapentin 200 mg PO QDDINNER 09/12/17 06/29/19 Psyllium [Metamucil] 1 each PO DAILY 09/12/17 04/09/19 Levothyroxine [Synthroid] 112.5 mcg PO QDBREAKFAST 06/29/19 06/29/19 Ferrous Gluconate [Fergon] 270 mg PO DAILY #30 tablet 07/01/19 Omeprazole 20 mg PO BID #60 capsule. 07/01/19 - PHYSICAL EXAM AT DISCHARGE General Appearance: positive: No acute distress, Alert Eyes Bilateral: positive: Normal inspection ENT: positive: ENT inspection nml Neck: positive: Nml inspection, No JVD Cardiovascular: positive: Irregularly irregular Abdomen: positive: Non-tender Skin: positive: Color nml Extremities: positive: No pedal edema - LABS Result Diagrams: 07/01/19 05:30 07/01/19 05:30 - DIAGNOSTIC IMAGING Diagnostic Imaging Results: Final report reviewed - SEPSIS Current Stage of Sepsis: Ruled out - FOLLOW UP Follow Up: See PCP in the upcoming week. Have follow-up of hemoglobin on oral iron replacement. See Dr. Javier Connolly in 1 month for a repeat endoscopy. - TIME SPENT Time Spent in Discharge (Minutes): 45"
--- NOTE | 2019-07-01 10:25 | PROVIDER PROGRESS NOTE ---
Assessment/Plan - Problem List (1) GI bleed Qualifiers: GI bleed type/associated pathology: duodenal ulcer Qualified Code(s): K26.4 - Chronic or unspecified duodenal ulcer with hemorrhage Assessment/Plan: Pt is stable with no signs of recurrent bleeding. Rec: ok for d/c home on oral high dose PPI therapy and outpt f/u in my office in 2 weeks to arrange for a f/u EGD in 4-6 weeks to document satisfactory healing of his ulcer prior to restarting his anticoagulation therapy. He should avoid NSAIDs indefinitely. - Current Meds Current Meds: Current Medications Generic Name Dose Route Start Last Admin Trade Name Freq PRN Reason Stop Dose Admin Ferrous Gluconate 324 mg 07/01/19 09:00 07/01/19 09:46 Fergon PO 324 mg DAILYWM SWETHA Administration Gabapentin 200 mg 06/29/19 17:00 06/30/19 16:57 Neurontin PO 200 mg QDDINNER SWETHA Administration Insulin Aspart 1 - 5 unit 06/29/19 12:30 07/01/19 08:01 Novolog SUBQ Not Given 0800,1200,1700,2100 [facility] Protocol Levothyroxine Sodium 125 mcg 06/30/19 09:00 07/01/19 06:31 Synthroid PO 125 mcg QDAC SWETHA Administration Lisinopril 2.5 mg 06/30/19 09:00 07/01/19 08:00 Zestril PO 2.5 mg DAILY SWETHA Administration Metoprolol Succinate 12.5 mg 06/29/19 13:00 07/01/19 08:00 Toprol Xl PO 12.5 mg DAILY SWETHA Administration Multivitamins 1 tab 06/30/19 08:00 07/01/19 08:01 Theragran PO 1 tab DAILYWM SWETHA Administration Ondansetron HCl 4 mg 06/29/19 03:37 06/29/19 10:53 Zofran Inj IVP 4 mg Q6HR PRN Administration Nausea / Vomiting Pantoprazole Sodium 40 mg 06/29/19 09:00 07/01/19 08:01 Protonix IVP 40 mg BID SWETHA Administration Sodium Chloride 10 ml 06/29/19 03:37 07/01/19 05:02 Normal Saline Flush 0.9% IVP 10 ml PRN PRN Administration NEEDED PER PROVIDER ORDERS Sodium Chloride 10 ml 06/29/19 09:00 07/01/19 08:01 Normal Saline Flush 0.9% IVP 10 ml 0100,0900,1700 SWETHA Administration Tamsulosin HCl 0.4 mg 06/29/19 09:00 07/01/19 08:01 Flomax PO 0.4 mg DAILY SWETHA Administration - Lab Result Lab results reviewed: Yes Fish Bone Diagrams: 07/01/19 05:30 07/01/19 05:30 - Additional Planning Condition/Complexity: Improved My Orders: My Active Orders 06/30/19 Lunch Full Liquid Diet [DIET] Plan Discussed with:: Patient, Other (hospitalist) Time Spent: 15-30 minutes Subjective - Subjective Patient Reports: Feeling Better, Resting Comfortably, No Complaints (bm's yesterday melenic but last bm this am nl color) Objective Vital Signs: Vital Signs - 24 hr 06/30/19 06/30/19 06/30/19 12:53 16:04 20:51 Temperature 36.4 C L 36.3 C L 36.2 C L Heart Rate [ 92 85 87 Radial] Heart Rate [ Sitting (After 1 Minute)] Heart Rate [ Standing (After 1 Minute)] Heart Rate [ Supine] Respiratory 16 18 20 Rate Blood Pressure 108/68 109/53 L 112/65 [Right Brachial artery] Blood Pressure [Sitting (After 1 Minute)] Blood Pressure [Standing ( After 1 Minute) ] Blood Pressure [Supine] O2 Saturation 98 94 93 06/30/19 07/01/19 07/01/19 23:55 05:25 07:41 Temperature 36.3 C L 36.6 C 36.5 C Heart Rate [ 92 99 91 Radial] Heart Rate [ Sitting (After 1 Minute)] Heart Rate [ Standing (After 1 Minute)] Heart Rate [ Supine] Respiratory 16 16 16 Rate Blood Pressure 102/64 116/55 L 126/71 [Right Brachial artery] Blood Pressure [Sitting (After 1 Minute)] Blood Pressure [Standing ( After 1 Minute) ] Blood Pressure [Supine] O2 Saturation 95 93 93 07/01/19 09:05 Temperature Heart Rate [ Radial] Heart Rate [ 110 H Sitting (After 1 Minute)] Heart Rate [ 92 Standing (After 1 Minute)] Heart Rate [ 111 H Supine] Respiratory Rate Blood Pressure [Right Brachial artery] Blood Pressure 117/67 [Sitting (After 1 Minute)] Blood Pressure 119/63 [Standing ( After 1 Minute) ] Blood Pressure 117/60 [Supine] O2 Saturation Oxygen O2 Source Room air I&O (Last 24 Hrs): Intake and Output Totals x24h 06/29/19 06/30/19 07/01/19 23:59 23:59 23:59 Intake Total 2275 2230.000 1520 Output Total 150 1000 400 Balance 2125 3662.845 5763 General: Alert, Cooperative, No acute distress Abdomen: Soft, No tenderness, No hepatospenomegaly, No masses - Results Results: Laboratory Results WBC 4.8 x10^3/uL (4.8-10.8) 07/01/19 05:30 RBC 3.01 10^6/uL (4.70-6.10) L 07/01/19 05:30 Hgb 9.1 g/dL (14.0-18.0) L 07/01/19 05:30 Hct 28.2 % (42.0-52.0) L 07/01/19 05:30 MCV 93.7 fL (80.0-94.0) 07/01/19 05:30 MCH 30.2 pg (27.0-31.0) 07/01/19 05:30 MCHC 32.3 g/dL (32.0-36.0) 07/01/19 05:30 RDW 13.2 % (12.0-15.0) 07/01/19 05:30 Plt Count 200 10^3/uL (130-450) 07/01/19 05:30 MPV 10.7 fL (7.4-11.4) 07/01/19 05:30 Neut # (Auto) 3.0 10^3/uL (1.5-6.6) 07/01/19 05:30 Lymph # (Auto) 1.1 10^3/uL (1.5-3.5) L 07/01/19 05:30 Monona # (Auto) 0.4 10^3/uL (0.0-1.0) 07/01/19 05:30 Eos # (Auto) 0.3 10^3/uL (0.0-0.7) 07/01/19 05:30 Baso # (Auto) 0.1 10^3/uL (0.0-0.1) 07/01/19 05:30 Absolute Nucleated RBC 0.00 x10^3/uL 07/01/19 05:30 Nucleated RBC % 0.0 /100WBC 07/01/19 05:30 PT 18.2 secs (9.9-12.6) H 07/01/19 05:30 INR 1.6 (0.8-1.2) H 07/01/19 05:30 Sodium 138 mmol/L (135-145) 07/01/19 05:30 Potassium 3.9 mmol/L (3.5-5.0) 07/01/19 05:30 Chloride 105 mmol/L (101-111) 07/01/19 05:30 Carbon Dioxide 25 mmol/L (21-32) 07/01/19 05:30 Anion Gap 8.0 (6-13) 07/01/19 05:30 BUN 17 mg/dL (6-20) 07/01/19 05:30 Creatinine 1.2 mg/dL (0.6-1.2) 07/01/19 05:30 Estimated GFR (MDRD) 58 (>89) L 07/01/19 05:30 Glucose 128 mg/dL (70-100) H 07/01/19 05:30 Glycated Hemoglobin 7.9 % (4.6-6.2) H 06/29/19 08:56 Estim Average Glucose 180 (70-100) H 06/29/19 08:56 Calcium 8.5 mg/dL (8.5-10.3) 07/01/19 05:30 Magnesium 1.9 mg/dL (1.7-2.8) 07/01/19 05:30 Total Bilirubin 0.8 mg/dL (0.2-1.0) 06/29/19 02:45 AST 20 IU/L (10-42) 06/29/19 02:45 ALT 18 IU/L (10-60) 06/29/19 02:45 Alkaline Phosphatase 48 IU/L (42-121) 06/29/19 02:45 Total Protein 6.2 g/dL (6.7-8.2) L 06/29/19 02:45 Albumin 3.2 g/dL (3.2-5.5) 06/29/19 02:45 Globulin 3.0 g/dL (2.1-4.2) 06/29/19 02:45 Albumin/Globulin Ratio 1.1 (1.0-2.2) 06/29/19 02:45 Lipase 33 U/L (22-51) 06/29/19 02:45 TSH 6.66 uIU/mL (0.34-5.60) H 06/30/19 05:55 Blood Type A POSITIVE 06/29/19 02:45 Antibody Screen NEGATIVE 06/29/19 02:45 - Procedures Procedures: Procedures CATARAC PHACOEMULS/ASPIR (06/20/14) CONTROL BLEEDING IN GASTROINTESTINAL TRACT, ENDO (09/23/17) EXCISION OF ASCENDING COLON, ENDO (02/27/19) EXCISION OF DESCENDING COLON, ENDO (02/27/19) EXCISION OF RECTUM, ENDO, DIAGN (09/23/17) EXCISION OF SIGMOID COLON, ENDO, DIAGN (09/23/17) EXCISION OF TRANSVERSE COLON, ENDO, DIAGN (09/23/17) INSERT LENS AT CATAR EXT (06/20/14) REPLACEMENT OF LEFT LENS WITH SYNTH SUB, PERC APPROACH (09/04/15) Sepsis Event Note (H) - Evaluation Current Stage of Sepsis: Ruled out ABX Reporting Has patient been on IV antibiotics over the past 48 hours?: No
[2019-07-01] MEDS ORDERED: ATORVASTATIN 10 MG TABLET PO SCH (21:00)
--- NOTE | 2019-07-12 13:20 | CONSULTATION NOTE ---
Referring Provider Name of Referring Provider:: Dr. Kelsey Consult Date: 06/29/19 Chief Complaint - Chief Complaint Chief Complaint: GI bleed History of Present Illness - Admitted From Admitted From:: ER - History Obtained From Records Reviewed: yes History obtained from: pt, , records Exam Limitations: none - History of Present Illness HPI Comment/Other: 83 yo male who noted onset of dark bloody bms yesterday afternoon, which persisted through the evening prompting ER evaluation last night and admission. Multiple black tarry foul smelling bms since onset. No prior similar. No abd pain, N/V, or wt loss. No hx PUD. Takes occasional NSAID for aches/pains but not daily. On warfarin for AFIB and INR is 3.6. Hgb 11 on admission. Hx rectal cancer, s/p low anterior resection in 2001 along with radiation and chemotherapy and followed in the [facility]; has chronic elevation of his CEA but thought to be EDUARDO. Colonoscopy in February of this year showed several small adenomas, mild tics and ow EDUARDO. No syncope but was dizzy this am getting up to bedside commode. Pt has been given vit K, FFP and started on pantoprazole. Surgical consultation was requested. He has been hemodynamically stable. History - Past Medical History Cardiovascular: reports: Hypertension, High cholesterol, Atrial fibrillation Respiratory: reports: None Neuro: reports: CVA Endocrine/Autoimmune: reports: Type 2 diabetes GI: reports: Other (rectal cancer 2002 s/p radiation/chemo and surgery) : reports: None HEENT: reports: None Psych: reports: None Musculoskeletal: reports: Other Derm: reports: Other MRSA Hx?: No - Past Surgical History General: reports: Bowel surgery (Low anterior resection 2001), Colonoscopy (2019: adenomas x 2; mild tics; EDUARDO) HEENT: reports: Cataracts - Family & Social History Living arrangement: At home Living Situation: With spouse/s.o. - Substance History Use: Uses substance without health or social issues: NONE - POLST Patient has POLST: No Meds/Allgy - Home Medications Home Medications: Ambulatory Orders Medication Instructions Recorded Confirmed Simvastatin [Zocor] 10 mg PO DAILY 02/05/13 06/29/19 lisinopriL [Lisinopril] 2.5 mg PO DAILY 02/05/13 06/29/19 Glipizide [Glipizide ER] 5 mg PO DAILY 05/09/13 06/29/19 Multivitamin [Gummi Bear 1 each PO DAILY 05/09/13 06/29/19 Multivitamin] Vitamin B Complex [B Complex] 1 each PO DAILY 05/09/13 06/29/19 Cholecalciferol (Vitamin D3) 2,000 unit PO DAILY 06/19/14 06/29/19 [Vitamin D3] Metoprolol Succinate 12.5 mg PO QDBREAKFAST 06/19/14 06/29/19 Tamsulosin [Flomax] 0.4 mg ORAL DAILY 08/19/17 06/29/19 Gabapentin 200 mg PO QDDINNER 09/12/17 06/29/19 Psyllium [Metamucil] 1 each PO DAILY 09/12/17 04/09/19 Levothyroxine [Synthroid] 112.5 mcg PO QDBREAKFAST 06/29/19 06/29/19 Ferrous Gluconate [Fergon] 270 mg PO DAILY #30 tablet 07/01/19 Omeprazole 20 mg PO BID #60 capsule. 07/01/19 - Allergies Allergies/Adverse Reactions: Allergies Allergy/AdvReac Type Severity Reaction Status Date / Time No Known Drug Allergies Allergy Verified 06/29/19 02:33 Review of Systems - Constitutional Constitutional: denies: Fever, Chills, Weight gain, Weight loss - Cardiovascular Cariovascular: reports: Irregular heart rate, Lightheadedness. denies: Syncope - Respiratory Respiratory: denies: Cough - Gastrointestinal Gastrointestinal: reports: Rectal bleeding, Black stools. denies: Abdominal pain, Abdominal distention, Constipation, Diarrhea, Nausea, Vomiting - Hematologic/Lymphatic Hematologic/Lymphatic: denies: Anemia, Blood clots, Bleeding tendencies - All Other Systems All Other Systems: reports: Reviewed and negative (or covered in HPI/PMH) Exam - Vital Signs Reviewed Vital Signs: Yes - Physical Exam General Appearance: positive: No acute distress, Alert Eyes Bilateral: positive: Conjunctivae nml (pale), No scleral icterus ENT: positive: ENT inspection nml, Dry mucous membranes Neck: positive: No JVD, Trachea midline. negative: Lymphadenopathy (R), Lympha denopathy (L) Respiratory: positive: Chest non-tender, No respiratory distress, Breath sounds nml Cardiovascular: positive: No murmur, Irregularly irregular Abdomen: positive: Non-tender, No organomegaly, No distention. negative: Hepatomegaly, Splenomegaly, Mass Skin: positive: Warm, Dry, Pallor. negative: Cyanosis Extremities: positive: No pedal edema. negative: Calf tenderness Neurologic/Psychiatric: positive: Oriented x3 Conclusion and Plan - Diagnosis Diagnosis: GI bleed, major, likely upper given melena and recent favorable colonoscopy. DDX includes PUD, gastritis, varices, dieulafoy lesion, esophagitis, neoplasm, angiodysplasia; lower gi source such as diverticular, angiodysplasia much less likely. Evidence of ongoing bleeding; anticoagulation status is being reversed. Hemodynamically stable. - Plan Plan: Agree with NPO, IVF, FFP, vit k, transfuse prbcs as necessary, PPI therapy. Plan EGD today for attempt at definitive diagnosis and therapy. PAR conf with pt and and consent obtained. Thanks, Assess/Plan - Additional Planning Plan Discussed with:: Patient, Family Time Spent: 31-60 minutes
== END 2019-07-01 11:29 | disposition home or self-care (01) | DRG 378 ==
LOC: EDUNIT# → ED 02:23 → MS2 03:38 → OBSVTOIN 06-30 10:28
PROVIDERS: ADMIT Internal Medicine; ATTEND Internal Medicine
PROC: 0DB78ZX Excision of Stomach, Pylorus, Via Natural or Artificial Opening Endoscopic, Diagnostic (ICD-10-PCS; 2019-06-29)
PROC: 0W3P8ZZ Control Bleeding in Gastrointestinal Tract, Via Natural or Artificial Opening Endoscopic (ICD-10-PCS; principal; 2019-06-29 09:15)
DX: K26.4 Chronic or unspecified duodenal ulcer with hemorrhage (principal); K31.9 Disease of stomach and duodenum, unspecified; I48.20 Chronic atrial fibrillation, unspecified; R79.1 Abnormal coagulation profile; E11.9 Type 2 diabetes mellitus without complications; D62 Acute posthemorrhagic anemia; E11.40 Type 2 diabetes mellitus with diabetic neuropathy, unspecified; E03.9 Hypothyroidism, unspecified; I10 Essential (primary) hypertension; E78.00 Pure hypercholesterolemia, unspecified; N40.0 Benign prostatic hyperplasia without lower urinary tract symptoms; I69.341 Monoplegia of lower limb following cerebral infarction affecting right dominant side; Z86.010 Personal history of colon polyps; Z79.1 Long term (current) use of non-steroidal anti-inflammatories (NSAID); Z79.899 Other long term (current) drug therapy; Z79.01 Long term (current) use of anticoagulants; Z85.048 Personal history of other malignant neoplasm of rectum, rectosigmoid junction, and anus; Z87.891 Personal history of nicotine dependence; Z92.3 Personal history of irradiation; Z79.84 Long term (current) use of oral hypoglycemic drugs
CPT/HCPCS: 36415; 36430; 43239; 43255; 80048; 80053; 83036; 83690; 83735; 84443; 85014; 85018; 85025; 85610; 86850; 86900; 86901; 87081; 93005; 96361; 96374; 99284; 99285; A9270; G0378; J7120; P9017

== ENCOUNTER 2019-07-09 15:16 | Outpatient (CLI) | payer MEDICARE, OTHER | END 2019-07-09 15:17 | disposition home or self-care (01) | LOC: LAB.S 15:16 | PROVIDERS: ATTEND Internal Medicine | DX: Z79.01 Long term (current) use of anticoagulants (principal); I48.0 Paroxysmal atrial fibrillation | CPT/HCPCS: 85610 ==

== ENCOUNTER 2019-08-23 12:51 | Outpatient (CLI) | payer MEDICARE, OTHER ==
[2019-08-23 17:46] LABS: ALBUMIN 4.1 g/dL (3.2-5.5); ALBUMIN/GLOBULIN RATIO 1.1 (1.0-2.2); BILIRUBIN,TOTAL 0.8 mg/dL (0.2-1.0); CREATININE 1.2 mg/dL (0.6-1.2); TOTAL PROTEIN 7.7 g/dL (6.7-8.2)
== END 2019-08-23 12:52 | disposition home or self-care (01) ==
LOC: LAB.S 12:51
PROVIDERS: ATTEND Internal Medicine Gastroenterology
DX: K26.4 Chronic or unspecified duodenal ulcer with hemorrhage (principal); I50.9 Heart failure, unspecified; E11.40 Type 2 diabetes mellitus with diabetic neuropathy, unspecified
CPT/HCPCS: 36415; 80053; 85025

== ENCOUNTER 2019-08-27 06:29 | Day surgery (SDC) | payer MEDICARE, OTHER ==
[2019-08-27] MEDS ORDERED: LACTATED RINGERS 1,000 ML IV ONE ×2 (07:09→08:37)
[2019-08-27] MEDS ORDERED: LIDO GARGLE 30 ML BOTTLE PO ONE (08:20)
[2019-08-27] MEDS ORDERED: LIDO GARGLE 30 ML BOTTLE ONE (08:21)
[2019-08-27] MEDS ORDERED: fentaNYL 250 MCG/5 ML VIAL IVP ONE (08:28)
[2019-08-27] MEDS ORDERED: MIDAZOLAM 2 MG/2 ML VIAL IVP ONE (08:28)
[2019-08-27 09:24] VITALS: BP 131/62
== END 2019-08-27 06:30 | disposition home or self-care (01) ==
LOC: SDS 06:29
PROVIDERS: ATTEND Internal Medicine Gastroenterology
PROC: 0DJD8ZZ Inspection of Lower Intestinal Tract, Via Natural or Artificial Opening Endoscopic (ICD-10-PCS; principal; 2019-08-27 08:15)
DX: Z09 Encounter for follow-up examination after completed treatment for conditions other than malignant neoplasm (principal); Z87.11 Personal history of peptic ulcer disease; K31.5 Obstruction of duodenum; R15.9 Full incontinence of feces; I48.0 Paroxysmal atrial fibrillation; I69.951 Hemiplegia and hemiparesis following unspecified cerebrovascular disease affecting right dominant side; E11.40 Type 2 diabetes mellitus with diabetic neuropathy, unspecified; I11.0 Hypertensive heart disease with heart failure; I50.9 Heart failure, unspecified; E03.9 Hypothyroidism, unspecified; N40.0 Benign prostatic hyperplasia without lower urinary tract symptoms; I71.2 Thoracic aortic aneurysm, without rupture; E78.00 Pure hypercholesterolemia, unspecified; Z79.01 Long term (current) use of anticoagulants; Z79.84 Long term (current) use of oral hypoglycemic drugs; Z85.048 Personal history of other malignant neoplasm of rectum, rectosigmoid junction, and anus; Z90.49 Acquired absence of other specified parts of digestive tract; Z92.3 Personal history of irradiation; Z92.21 Personal history of antineoplastic chemotherapy; Z86.718 Personal history of other venous thrombosis and embolism
CPT/HCPCS: 45378; A9270; J3010; J7120

== ENCOUNTER 2019-10-25 09:24 | Outpatient (CLI) | payer MEDICARE, OTHER | END 2019-10-25 09:25 | disposition home or self-care (01) | LOC: LAB 09:24 | PROVIDERS: ATTEND Internal Medicine | DX: I48.0 Paroxysmal atrial fibrillation (principal); Z79.01 Long term (current) use of anticoagulants | CPT/HCPCS: 85610 ==

== ENCOUNTER 2019-11-13 09:40 | Outpatient (CLI) | payer MEDICARE, OTHER | END 2019-11-13 09:41 | disposition critical access hospital (66) | LOC: EMS 09:40 | PROVIDERS: ATTEND Surgery | DX: R55 Syncope and collapse (principal); R11.0 Nausea; R42 Dizziness and giddiness; R07.89 Other chest pain | CPT/HCPCS: A0425; A0427; A0429 ==

== ENCOUNTER 2019-11-13 10:21 | Emergency (ER) | payer MEDICARE, OTHER ==
--- NOTE | 2019-11-13 10:26 | ED Physician Documentation ---
PD HPI SYNCOPE - Stated complaint Stated Complaint: NEAR SYNCOPE - History obtained from History obtained from: Patient, EMS - History of Present Illness Witnessed: Witnessed Timing - onset: Last night Preceding symptoms: Chest pain (pressure/discomfort), Light headed, Generalized weakness Associated symptoms: Chest pain Contributing factors: Just stood up. No: Recent med change, Decreased PO intake Injury occurred: No: Fell, Head injury, Neck injury Similar symptoms before: No diagnosis, Has not had sx before (He does have history of chronic atrial fibrillation and usually feels fine with that. He has been on his usual medications without any recent change. He states the last week or so he has been having a feeling of chest heaviness with getting up and walking around. Last night he had at rest episode of chest pressure and pain that lasted a few hours and then decreased. He did not have any chest pain this morning but states he had a feeling of general weakness and lightheadedness with standing up. He states he almost fainted but did not fall or injure himself. He had had some lightheadedness and general weakness over the last week but was most notable this morning and last evening after the chest pain episode. No history of AL nor congestive heart failure.) Recently seen: Not recently seen Review of Systems Constitutional: denies: Fever, Chills Nose: denies: Rhinorrhea / runny nose, Congestion Throat: denies: Sore throat Cardiac: reports: Chest pain / pressure (episodic with activity the past week; significant chest pressure/pain last evening for 2-3 hours.) Respiratory: reports: Dyspnea, Cough (Mild nonproductive cough for the last 2 or 3 months.), Wheezing (Intermittently). denies: Hemoptysis GI: denies: Abdominal Pain, Nausea, Vomiting, Diarrhea, Hematemesis, Bloody / black stool : denies: Dysuria, Frequency Skin: denies: Abrasion (s), Laceration (s) Musculoskeletal: reports: Extremity swelling (chronic mild edema in right leg since prior CVA.). denies: Neck pain, Back pain Neurologic: reports: Generalized weakness, Focal weakness (mild right arm and leg from prior CVA), Near syncope. denies: Syncope, Altered mental status Psychiatric: denies: Depressed Endocrine: reports: Easy bruising / bleeding. denies: Weight loss Immunocompromised: denies: Immunocompromised PD PAST MEDICAL HISTORY - Past Medical History Cardiovascular: Hypertension, High cholesterol, Atrial fibrillation Respiratory: None Neuro: CVA Endocrine/Autoimmune: Type 2 diabetes, HyPOthyroidism GI: GI bleed, Chronic diarrhea : None HEENT: None Psych: None Musculoskeletal: Other Derm: Other - Past Surgical History Past Surgical History: Yes General: Colonoscopy, EGD, Other HEENT: Cataracts - Present Medications Home Medications: Ambulatory Orders Medication Instructions Recorded Confirmed Simvastatin [Zocor] 10 mg PO DAILY 02/05/13 11/13/19 lisinopriL [Lisinopril] 2.5 mg PO DAILY 02/05/13 11/13/19 Glipizide [Glipizide ER] 5 mg PO DAILY 05/09/13 11/13/19 Multivitamin [Gummi Bear 1 each PO DAILY 05/09/13 11/13/19 Multivitamin] Vitamin B Complex [B Complex] 1 each PO DAILY 05/09/13 11/13/19 Cholecalciferol (Vitamin D3) 2,000 unit PO DAILY 06/19/14 11/13/19 [Vitamin D3] Metoprolol Succinate 12.5 mg PO QDBREAKFAST 06/19/14 11/13/19 Gabapentin 200 mg PO QDDINNER 09/12/17 11/13/19 Levothyroxine [Synthroid] 112.5 mcg PO QDBREAKFAST 06/29/19 11/13/19 Diltiazem HCl [Cardizem] 120 mg PO 11/13/19 Tamsulosin [Flomax] 11/13/19 Warfarin [Coumadin] 11/13/19 - Allergies Allergies/Adverse Reactions: Allergies Allergy/AdvReac Type Severity Reaction Status Date / Time No Known Drug Allergies Allergy Verified 11/13/19 10:30 - Social History Does the pt smoke?: No Smoking Status: Never smoker Does the pt drink ETOH?: No Does the pt have substance abuse?: No - Immunizations Immunizations are current?: No Immunizations: TDAP >10years/unknown - POLST Patient has POLST: No PD ED PE NORMAL - Vitals Vital signs reviewed: Yes - General General: Alert and oriented X 3, No acute distress, Well developed/nourished - HEENT HEENT: Pharynx benign - Neck Neck: Supple, no meningeal sign, No adenopathy - Cardiac Cardiac: No murmur, No rub. No: RRR (irregular but rate only mild tachycardic 105-110) - Respiratory Respiratory: No respiratory distress. No: Clear bilaterally (crackles in both bases. Mild exp wheezing. ) - Abdomen Abdomen: Normal bowel sounds, Soft, Non tender, Non distended - Back Back: No CVA TTP - Derm Derm: Normal color, Warm and dry - Extremities Extremities: No tenderness to palpate, No calf tenderness / cord, Other (1+ edema in both legs, slighlty more on right) - Neuro Neuro: Alert and oriented X 3, No motor deficit, Normal speech Eye Opening: Spontaneous Motor: Obeys Commands Verbal: Oriented GCS Score: 15 Results - Vitals Vitals: Vital Signs - 24 hr 11/13/19 11/13/19 11/13/19 10:38 10:44 10:54 Temperature 36.9 C Heart Rate 109 H 110 H Respiratory 22 19 Rate Blood Pressure 119/79 129/84 H Blood Pressure 129/84 H [Right] O2 Saturation 96 93 11/13/19 11/13/19 11/13/19 11:05 11:11 11:15 Temperature Heart Rate 101 H 89 98 Respiratory 11 L 17 16 Rate Blood Pressure 110/67 104/66 108/58 L Blood Pressure [Right] O2 Saturation 94 98 98 11/13/19 11/13/19 11/13/19 11:20 11:30 11:36 Temperature Heart Rate 94 80 89 Respiratory 11 L 15 Rate Blood Pressure 88/74 L 100/57 L 117/77 Blood Pressure [Right] O2 Saturation 96 96 11/13/19 11/13/19 11/13/19 11:54 12:00 12:15 Temperature Heart Rate 86 92 94 Respiratory 15 14 19 Rate Blood Pressure 126/66 127/62 Blood Pressure [Right] O2 Saturation 95 97 11/13/19 12:30 Temperature Heart Rate 95 Respiratory 12 Rate Blood Pressure 113/75 Blood Pressure [Right] O2 Saturation 94 Oxygen O2 Source Room air - EKG (time done) 10:24 Rate: Rate (enter#) (113) Rhythm: Atrial fibrillation [place]: Normal Intervals: Normal RI QRS: Normal Ischemia: Normal ST segments. No: ST elevation c/w ischemia, ST depression - Labs Labs: Laboratory Tests 11/13/19 11/13/19 11/13/19 11:04 11:04 11:04 WBC 8.8 RBC 4.10 L Hgb 11.0 L Hct 35.3 L MCV 86.1 MCH 26.8 L MCHC 31.2 L RDW 14.6 Plt Count 227 MPV 10.3 Neut # (Auto) 7.4 H Lymph # (Auto) 0.5 L Branch # (Auto) 0.7 Eos # (Auto) 0.1 Baso # (Auto) 0.1 Absolute Nucleated RBC 0.00 Nucleated RBC % 0.0 PT INR Sodium 136 Potassium 4.5 Chloride 105 Carbon Dioxide 24 Anion Gap 7.0 BUN 23 H Creatinine 1.3 H Estimated GFR (MDRD) 53 L Glucose 158 H Calcium 8.1 L Magnesium 2.0 Total Bilirubin 1.0 AST 39 ALT 31 Alkaline Phosphatase 78 Total Creatine Kinase 100 Troponin I High Sens 110.1 H* B-Natriuretic Peptide Total Protein 7.5 Albumin 3.5 Globulin 4.0 Albumin/Globulin Ratio 0.9 L Lipase 30 TSH 11/13/19 11/13/19 11/13/19 11:04 11:04 11:04 WBC RBC Hgb Hct MCV MCH MCHC RDW Plt Count MPV Neut # (Auto) Lymph # (Auto) Branch # (Auto) Eos # (Auto) Baso # (Auto) Absolute Nucleated RBC Nucleated RBC % PT 38.7 H INR 3.7 H Sodium Potassium Chloride Carbon Dioxide Anion Gap BUN Creatinine Estimated GFR (MDRD) Glucose Calcium Magnesium Total Bilirubin AST ALT Alkaline Phosphatase Total Creatine Kinase Troponin I High Sens B-Natriuretic Peptide 769 H Total Protein Albumin Globulin Albumin/Globulin Ratio Lipase TSH 4.41 PD MEDICAL DECISION MAKING - ED course Complexity details: re-evaluated patient, considered differential (History of chronic atrial fibrillation and is reasonably rate controlled at 100-1 10 so I doubt that it is rate related heart failure. He did have a chest pain episode significantly last evening has a considerable elevated troponin this morning without any ST changes on EKG. This would be most consistent with acute coronary syndrome and most likely non-STEMI AL. He does need more specific cardiology testing and treatment so I talked with the patient who is agreeable to transfer and would like specific cardiac testing including and up to a heart cath if indicated at the discretion of the cessation systems outreach specialist. Therefore sought consultation with cardiology for transfer.), d/w patient, d/w home energy consultant supervisor (Dr. Malloy, Cardiology, who accepts patient for transfer for further testing/intervention. ) ED course: The patient was given metoprolol 5 mg IV to help slow the heart rate a little b it. His blood pressure dropped transiently to 88 systolic and he was given a mild fluid bolus and that brought his blood pressure up. He however did seem to have a little bit more trouble breathing and so with the blood pressure now normal and heart rate good, I worked on diuresis with Lasix. At this point I was not giving nitrates as his blood pressure was just good enough. He was given aspirin as well. He already takes a statin at home. He is on Coumadin with a therapeutic level. He did have a wheeze component was given albuterol MDI several puffs with some improvement. He had had some recent cough for the last month or 2 but does not have any pneumonia appearance on x-ray. Talking with the warranty coordinator at [facility], they said they would perform a rapid coronavirus test at their facility and will get the results back faster than we would obtaining when here. Departure - Departure Disposition: 02 Transfer Acute Care Hosp Clinical Impression: Elevated INR Atrial fibrillation Qualifiers: Atrial fibrillation type: unspecified chronic Qualified Code(s): I48.20 - Chronic atrial fibrillation, unspecified Chest pain Qualifiers: Chest pain type: precordial pain Qualified Code(s): R07.2 - Precordial pain Myocardial infarction Qualifiers: Myocardial infarction type: non-ST elevation myocardial infarction Qualified Code(s): I21.4 - Non-ST elevation (NSTEMI) myocardial infarction Condition: Stable Record reviewed to determine appropriate education?: Yes
[2019-11-13] MEDS ORDERED: METOPROLOL 5 MG/5 ML VIAL IVP STA (10:52)
[2019-11-13 11:10] LABS: BASOPHILS # (AUTO) 0.1 10^3/uL (0.0-0.1); BASOPHILS % (AUTO) 0.6 %; EOSINOPHILS # (AUTO) 0.1 10^3/uL (0.0-0.7); EOSINOPHILS % (AUTO) 0.9 %; LYMPHOCYTES # (AUTO) 0.5 10^3/uL (1.5-3.5); LYMPHOCYTES % (AUTO) 5.5 %; MEAN CORPUSCULAR HEMOGLOBIN 26.8 pg (27.0-31.0); MEAN CORPUSCULAR HGB CONC 31.2 g/dL (32.0-36.0); MEAN CORPUSCULAR VOLUME 86.1 fL (80.0-94.0); MEAN PLATELET VOLUME 10.3 fL (7.4-11.4); MONOCYTES # (AUTO) 0.7 10^3/uL (0.0-1.0); MONOCYTES % (AUTO) 8.1 %; NEUTROPHILS # (AUTO) 7.4 10^3/uL (1.5-6.6); NEUTROPHILS % (AUTO) 84.4 %; PLT - PLATELET COUNT 227 10^3/uL (130-450); RED CELL DISTRIBUTION WIDTH 14.6 % (12.0-15.0); WHITE BLOOD COUNT 8.8 x10^3/uL (4.8-10.8)
[2019-11-13 11:16] LABS: INR 3.7 (0.8-1.2); PT - PROTHROMBIN TIME 38.7 secs (9.9-12.6)
[2019-11-13] MEDS ORDERED: SODIUM CHLORIDE 0.9% 500 ML IV ONE (11:21)
[2019-11-13 11:26] LABS: ALBUMIN 3.5 g/dL (3.2-5.5); ALBUMIN/GLOBULIN RATIO 0.9 (1.0-2.2); CALCIUM 8.1 mg/dL (8.5-10.3); CREATININE 1.3 mg/dL (0.6-1.2); TOTAL PROTEIN 7.5 g/dL (6.7-8.2)
--- NOTE | 2019-11-13 11:32 | XRAY Report ---
Reason: Chest Pain Procedure Date: 11/13/2019 Accession Number: [id number] / [id number] Procedure: XR - Chest 1 View X-Ray CPT Code: 36996 Final Report FULL RESULT: EXAM: CHEST RADIOGRAPHY EXAM DATE: 11/13/2019 10:59 AM. CLINICAL HISTORY: Chest Pain since last night. COMPARISON: CHEST 2 VIEW PA/LAT 02/17/2015 3:35 PM. TECHNIQUE: 1 view. FINDINGS: Lungs/Pleura: Diffuse interstitial prominence. Probable trace right pleural effusion. No pneumothorax. Mediastinum: Cardiomegaly. Atherosclerotic aortic calcifications. Other: Diffuse osteopenia. IMPRESSION: Congestive heart failure. RADIA
[2019-11-13] MEDS ORDERED: FUROSEMIDE 20 MG/2 ML VIAL IVP STA ×2 (12:02→12:43)
[2019-11-13] MEDS ORDERED: ASPIRIN CHEW 81 MG TABLET PO STA (12:02)
[2019-11-13] MEDS ORDERED: ALBUTEROL 1 PUFF INH STA (12:02)
[2019-11-13 13:48] VITALS: BP 137/72
== END 2019-11-13 13:55 | disposition short-term general hospital (02) ==
LOC: EDUNIT# → ED 10:21
DX: I21.4 Non-ST elevation (NSTEMI) myocardial infarction (principal); I48.20 Chronic atrial fibrillation, unspecified; Z79.01 Long term (current) use of anticoagulants; I11.0 Hypertensive heart disease with heart failure; I50.9 Heart failure, unspecified; I95.9 Hypotension, unspecified; R79.1 Abnormal coagulation profile; E11.9 Type 2 diabetes mellitus without complications; Z79.84 Long term (current) use of oral hypoglycemic drugs; I69.351 Hemiplegia and hemiparesis following cerebral infarction affecting right dominant side
CPT/HCPCS: 36415; 71045; 80053; 82550; 83690; 83735; 83880; 84443; 84484; 85025; 85610; 93005; 94640; 96361; 96374; 96375; 96376; 99285; A9270

== ENCOUNTER 2019-11-13 13:56 | Outpatient (CLI) | payer MEDICARE, OTHER | END 2019-11-13 13:57 | disposition short-term general hospital (02) | LOC: EMS 13:56 | PROVIDERS: ATTEND Surgery | DX: I21.4 Non-ST elevation (NSTEMI) myocardial infarction (principal); R07.9 Chest pain, unspecified | CPT/HCPCS: A0425; A0426 ==

== ENCOUNTER 2019-11-21 08:00 | Outpatient (CLI) | payer MEDICARE, OTHER | END 2019-11-21 23:59 | disposition home or self-care (01) | LOC: LAB.WCP 08:00 | PROVIDERS: ATTEND Internal Medicine | DX: I48.91 Unspecified atrial fibrillation (principal); Z79.01 Long term (current) use of anticoagulants ==

== ENCOUNTER 2019-11-24 16:33 | Emergency (ER) | payer MEDICARE, OTHER ==
[2019-11-24 17:11] LABS: BASOPHILS # (AUTO) 0.1 10^3/uL (0.0-0.1); BASOPHILS % (AUTO) 0.9 %; EOSINOPHILS # (AUTO) 0.4 10^3/uL (0.0-0.7); EOSINOPHILS % (AUTO) 4.9 %; HGB - HEMOGLOBIN 12.3 g/dL (14.0-18.0); LYMPHOCYTES % (AUTO) 13.3 %; MEAN CORPUSCULAR HEMOGLOBIN 26.5 pg (27.0-31.0); MEAN CORPUSCULAR HGB CONC 31.1 g/dL (32.0-36.0); MEAN CORPUSCULAR VOLUME 84.9 fL (80.0-94.0); MEAN PLATELET VOLUME 10.8 fL (7.4-11.4); MONOCYTES # (AUTO) 0.8 10^3/uL (0.0-1.0); MONOCYTES % (AUTO) 10.1 %; NEUTROPHILS # (AUTO) 5.3 10^3/uL (1.5-6.6); NEUTROPHILS % (AUTO) 70.5 %; PLT - PLATELET COUNT 285 10^3/uL (130-450); RED BLOOD COUNT 4.65 10^6/uL (4.70-6.10); RED CELL DISTRIBUTION WIDTH 15.6 % (12.0-15.0); WHITE BLOOD COUNT 7.5 x10^3/uL (4.8-10.8)
[2019-11-24 17:22] LABS: INR 3.3 (0.8-1.2); PT - PROTHROMBIN TIME 34.7 secs (9.9-12.6)
--- NOTE | 2019-11-24 17:29 | ED Physician Documentation ---
History of Present Illness - Stated complaint Stated Complaint: L ARM PX - Chief complaint Chief Complaint: Cardiac - History obtained from History obtained from: Patient - History of Present Illness Timing: Today Pain level max: 4 Pain level now: 1 - Additonal information Additional information: 84-year-old male presents to the emergency department complaint of left shoulder and arm pain today. He had a cardiac stent placed approximately a week ago at [facility] in [place]. He states that the pain is worse with movement and better with rest. Does not seem to change with exertion. He is not having any pain as long as he is not moving the shoulder. No chest pain. No shortness of breath. No trauma. Review of Systems Ten Systems: 10 systems reviewed and negative Constitutional: denies: Fever, Chills Throat: denies: Sore throat Cardiac: denies: Chest pain / pressure, Palpitations Respiratory: denies: Dyspnea, Cough GI: denies: Abdominal Pain, Nausea, Vomiting, Diarrhea Skin: denies: Rash Musculoskeletal: denies: Neck pain, Back pain Neurologic: denies: Headache PD PAST MEDICAL HISTORY - Past Medical History Cardiovascular: Hypertension, High cholesterol, Atrial fibrillation Respiratory: None Neuro: CVA Endocrine/Autoimmune: Type 2 diabetes, HyPOthyroidism GI: GI bleed, Chronic diarrhea : None HEENT: None Psych: None Musculoskeletal: Other Derm: Other - Past Surgical History Past Surgical History: Yes General: Colonoscopy, EGD, Other HEENT: Cataracts - Present Medications Home Medications: Ambulatory Orders Medication Instructions Recorded Confirmed Simvastatin [Zocor] 10 mg PO DAILY 02/05/13 11/13/19 lisinopriL [Lisinopril] 2.5 mg PO DAILY 02/05/13 11/13/19 Glipizide [Glipizide ER] 5 mg PO DAILY 05/09/13 11/13/19 Multivitamin [Gummi Bear 1 each PO DAILY 05/09/13 11/13/19 Multivitamin] Vitamin B Complex [B Complex] 1 each PO DAILY 05/09/13 11/13/19 Cholecalciferol (Vitamin D3) 2,000 unit PO DAILY 06/19/14 11/13/19 [Vitamin D3] Metoprolol Succinate 12.5 mg PO QDBREAKFAST 06/19/14 11/13/19 Gabapentin 200 mg PO QDDINNER 09/12/17 11/13/19 Levothyroxine [Synthroid] 112.5 mcg PO QDBREAKFAST 06/29/19 11/13/19 Diltiazem HCl [Cardizem] 120 mg PO 11/13/19 Tamsulosin [Flomax] 11/13/19 Warfarin [Coumadin] 11/13/19 - Allergies Allergies/Adverse Reactions: Allergies Allergy/AdvReac Type Severity Reaction Status Date / Time No Known Drug Allergies Allergy Verified 11/24/19 17:15 - Social History Does the pt smoke?: No Smoking Status: Never smoker Does the pt drink ETOH?: No Does the pt have substance abuse?: No - Immunizations Immunizations are current?: No Immunizations: TDAP >10years/unknown - POLST Patient has POLST: No PD ED PE NORMAL - Vitals Vital signs reviewed: Yes - General General: Alert and oriented X 3, No acute distress, Well developed/nourished - HEENT HEENT: Moist mucous membranes - Neck Neck: Supple, no meningeal sign - Cardiac Cardiac: RRR, Strong equal pulses - Respiratory Respiratory: No respiratory distress, Clear bilaterally - Abdomen Abdomen: Soft, Non tender, Non distended - Derm Derm: Warm and dry - Extremities Extremities: No deformity, Other (Pain with active range of motion of the left s houlder. No pain with passive range of motion. Neurovascular intact. No swelling in the left arm. No tenderness to palpation) - Neuro Neuro: Alert and oriented X 3 - Psych Psych: Normal mood, Normal affect Results - Vitals Vitals: Vital Signs - 24 hr 11/24/19 11/24/19 11/24/19 17:00 17:46 18:41 Temperature 36.8 C Heart Rate 58 L 89 97 Respiratory 16 19 16 Rate Blood Pressure 142/66 H 137/61 H 125/56 L O2 Saturation 96 94 99 Oxygen O2 Source Room air - EKG (time done) 1657 Rate: Rate (enter#) (97) Rhythm: Atrial fibrillation [place]: Normal QRS: Normal Ischemia: Normal ST segments - Labs Labs: Laboratory Tests 11/24/19 11/24/19 11/24/19 17:00 17:00 17:00 WBC 7.5 RBC 4.65 L Hgb 12.3 L Hct 39.5 L MCV 84.9 MCH 26.5 L MCHC 31.1 L RDW 15.6 H Plt Count 285 MPV 10.8 Neut # (Auto) 5.3 Lymph # (Auto) 1.0 L [place] # (Auto) 0.8 Eos # (Auto) 0.4 Baso # (Auto) 0.1 Absolute Nucleated RBC 0.00 Nucleated RBC % 0.0 PT 34.7 H INR 3.3 H Sodium 138 Potassium 4.8 Chloride 107 Carbon Dioxide 19 L Anion Gap 12.0 BUN 30 H Creatinine 1.3 H Estimated GFR (MDRD) 53 L Glucose 81 Calcium 8.9 Total Bilirubin 1.6 H AST 32 ALT 24 Alkaline Phosphatase 83 Troponin I High Sens Total Protein 7.9 Albumin 3.9 Globulin 4.0 Albumin/Globulin Ratio 1.0 Lipase 33 11/24/19 17:00 WBC RBC Hgb Hct MCV MCH MCHC RDW Plt Count MPV Neut # (Auto) Lymph # (Auto) [place] # (Auto) Eos # (Auto) Baso # (Auto) Absolute Nucleated RBC Nucleated RBC % PT INR Sodium Potassium Chloride Carbon Dioxide Anion Gap BUN Creatinine Estimated GFR (MDRD) Glucose Calcium Total Bilirubin AST ALT Alkaline Phosphatase Troponin I High Sens 478.7 H* Total Protein Albumin Globulin Albumin/Globulin Ratio Lipase - Rads (name of study) Chest x-ray Radiology: Prelim report reviewed, EMP read contemporaneously, See rad report (Cardiomegaly. No acute pulmonary airspace disease. ) PD MEDICAL DECISION MAKING - ED course Complexity details: reviewed results, re-evaluated patient, considered differential (No ST elevation DC, no aortic dissection, no PE, no tension pneumothorax, no aortic aneurysm), d/w patient, d/w software consultant ED course: 84-year-old male with what appears to be muscular left shoulder pain today. No acute findings on EKG. No findings on chest x-ray. Has a elevated high- sensitivity troponin, but this is likely postprocedural. Discussed the case with Dr. Grimes, cardiology on-call at [facility] in [place] who actually did the patient stent. He states he will follow-up with the patient on Tuesday or Tuesday. Information given to patient to call for appointment. Patient counseled regarding signs and symptoms for which I believe and urgent re- evaluation would be necessary. Patient with good understanding of and agreement to plan and is comfortable going home at this time This document was made in part using voice recognition software. While efforts are made to proofread this document, sound alike and grammatical errors may occur. No evidence of acute coronary syndrome Departure - Departure Disposition: 01 Home, Self Care Clinical Impression: Shoulder pain, left Qualifiers: Chronicity: acute Qualified Code(s): M25.512 - Pain in left shoulder Condition: Good Instructions: ED Shoulder Pain [facility] Follow-Up: Edel Reyes PA-C [Primary Care Provider] - Hamzah Grimes MD [Physician No Access] - Within 1 week Comments: Please call Dr. Grimes's office on Tuesday. He will see you either Tuesday or Tuesday. He states that either Indira or Ayesha will answer the phone and that they can overbook his schedule to fit you in. Return if you worsen. The number is [phone] Discharge Date/Time: 11/24/19 18:44
[2019-11-24 17:43] LABS: ALBUMIN 3.9 g/dL (3.2-5.5); BILIRUBIN,TOTAL 1.6 mg/dL (0.2-1.0); CALCIUM 8.9 mg/dL (8.5-10.3); CREATININE 1.3 mg/dL (0.6-1.2); TOTAL PROTEIN 7.9 g/dL (6.7-8.2)
--- NOTE | 2019-11-24 17:51 | XRAY Report ---
Reason: Chest Pain Procedure Date: 11/24/2019 Accession Number: [id number] / [id number] Procedure: XR - Chest 1 View X-Ray CPT Code: 00482 Final Report FULL RESULT: EXAM: CHEST RADIOGRAPHY EXAM DATE: 11/24/2019 05:24 PM. CLINICAL HISTORY: Chest pain. COMPARISON: CHEST 1 VIEW 11/13/2019 10:41 AM. TECHNIQUE: 1 view. FINDINGS: Lungs/Pleura: No focal opacities evident. No pleural effusion. No pneumothorax. Mediastinum: The heart is enlarged. Tortuous, atherosclerotic aorta. Other: None. IMPRESSION: Cardiomegaly. No acute pulmonary airspace disease. RADIA
[2019-11-24 18:44] VITALS: BP 125/56
== END 2019-11-24 18:44 | disposition home or self-care (01) ==
LOC: ED 16:33
DX: M25.512 Pain in left shoulder (principal); Z95.5 Presence of coronary angioplasty implant and graft; I48.91 Unspecified atrial fibrillation; I45.81 Long QT syndrome; E11.9 Type 2 diabetes mellitus without complications; Z79.84 Long term (current) use of oral hypoglycemic drugs; I11.9 Hypertensive heart disease without heart failure
CPT/HCPCS: 36415; 71045; 80053; 83690; 84484; 85025; 85610; 93005; 99284; 99285

== ENCOUNTER 2019-12-27 11:18 | Outpatient (CLI) | payer MEDICARE, OTHER ==
[2019-12-27 15:10] LABS: PT - PROTHROMBIN TIME 59.1 secs (9.9-12.6)
[2019-12-27 15:21] LABS: INR 5.7 (0.8-1.2)
== END 2019-12-27 11:19 | disposition home or self-care (01) ==
LOC: LAB.S 11:18
PROVIDERS: ATTEND Internal Medicine
DX: I48.0 Paroxysmal atrial fibrillation (principal); Z79.01 Long term (current) use of anticoagulants
CPT/HCPCS: 36415; 85610

== ENCOUNTER 2019-12-27 12:42 | Outpatient (CLI) | payer MEDICARE, OTHER | END 2019-12-27 23:59 | disposition critical access hospital (66) | LOC: EMS 12:42 | PROVIDERS: ATTEND Surgery | DX: I46.9 Cardiac arrest, cause unspecified (principal) | CPT/HCPCS: A0425; A0433 ==

== ENCOUNTER 2019-12-27 13:14 | Emergency (ER) | payer MEDICARE, OTHER ==
--- NOTE | 2019-12-27 13:26 | ED Physician Documentation ---
History of Present Illness - Stated complaint Stated Complaint: CPR - History obtained from History obtained from: EMS - History of Present Illness Timing: Today Pain level max: 0 Pain level now: 0 - Additonal information Additional information: Unwitnessed cardiac arrest, patient found in his car. He was in PEA initially. Received several rounds of epinephrine and 45 minutes of CPR so far with EMS. They state that they did have a pulse 1-2 times for approximately 30 seconds. Otherwise has been in PEA/asystole the entire time. Unknown how long he had been down before found. Review of Systems Unable to obtain: Unresponsive PD PAST MEDICAL HISTORY - Past Medical History Cardiovascular: Hypertension, High cholesterol, Atrial fibrillation Respiratory: None Neuro: CVA Endocrine/Autoimmune: Type 2 diabetes, HyPOthyroidism GI: GI bleed, Chronic diarrhea : None HEENT: None Psych: None Musculoskeletal: Other Derm: Other - Past Surgical History Past Surgical History: Yes General: Colonoscopy, EGD, Other HEENT: Cataracts - Present Medications Home Medications: Ambulatory Orders Medication Instructions Recorded Confirmed Simvastatin [Zocor] 10 mg PO DAILY 02/05/13 11/13/19 lisinopriL [Lisinopril] 2.5 mg PO DAILY 02/05/13 11/13/19 Glipizide [Glipizide ER] 5 mg PO DAILY 05/09/13 11/13/19 Multivitamin [Gummi Bear 1 each PO DAILY 05/09/13 11/13/19 Multivitamin] Vitamin B Complex [B Complex] 1 each PO DAILY 05/09/13 11/13/19 Cholecalciferol (Vitamin D3) 2,000 unit PO DAILY 06/19/14 11/13/19 [Vitamin D3] Metoprolol Succinate 12.5 mg PO QDBREAKFAST 06/19/14 11/13/19 Gabapentin 200 mg PO QDDINNER 09/12/17 11/13/19 Levothyroxine [Synthroid] 112.5 mcg PO QDBREAKFAST 06/29/19 11/13/19 Diltiazem HCl [Cardizem] 120 mg PO 11/13/19 Tamsulosin [Flomax] 11/13/19 Warfarin [Coumadin] 11/13/19 - Allergies Allergies/Adverse Reactions: Allergies Allergy/AdvReac Type Severity Reaction Status Date / Time No Known Drug Allergies Allergy Verified 12/15/19 10:14 - Social History Does the pt smoke?: No Smoking Status: Never smoker Does the pt drink ETOH?: No Does the pt have substance abuse?: No - Immunizations Immunizations are current?: No Immunizations: TDAP >10years/unknown - POLST Patient has POLST: No PD ED PE NORMAL - Vitals Vital signs reviewed: Yes - General General: Other (Intubated, pale) - HEENT HEENT: Other (Pupils fixed and dilated) - Cardiac Cardiac: Other (Absent heart sounds. Cardiac standstill on ultrasound) - Respiratory Respiratory: Other (Equal breath sounds bilaterally with bagging) - Abdomen Abdomen: Other (mild distention) - Derm Derm: Other (cool, pale) - Extremities Extremities: Other (recent venipuncture to L AC) - Neuro Neuro: Other (unresponsive.) Results - Vitals Vitals: Oxygen O2 Source Room air PD MEDICAL DECISION MAKING - ED course Complexity details: considered differential ED course: Patient with cardiac arrest for at least 45 minutes. Did have a pulse for approximately 1 minute total during this downtime. His pupils are fixed and dilated. Bedside ultrasound reveals cardiac standstill. There are a few agonal beats of PEA on the monitor. Given the prolonged downtime and lack of any cardiac activity on bedside ultrasound coupled with the fixed and dilated pupils. The code was called at 1318. This document was made in part using voice recognition software. While efforts are made to proofread this document, sound alike and grammatical errors may occur. Departure - Departure Disposition: 20 Clinical Impression: Cardiac arrest Discharge Date/Time: 12/27/19 14:37
== END 2019-12-27 14:37 | disposition expired ==
LOC: EDUNIT# → ED 13:14
DX: I46.9 Cardiac arrest, cause unspecified (principal); I10 Essential (primary) hypertension; I48.91 Unspecified atrial fibrillation; Z79.01 Long term (current) use of anticoagulants; E11.9 Type 2 diabetes mellitus without complications; Z79.84 Long term (current) use of oral hypoglycemic drugs
CPT/HCPCS: 36415; 85610; 99281; 99285